=== PATIENT | female | born 1970 | race Caucasian/White ===

== ENCOUNTER → 2017-09-28 19:54 | Outpatient (CLI) | payer MEDICAID, SELFPAY | PROVIDERS: Family Provider Family Medicine; PCP Family Medicine; Visit Provider Family Medicine | DX: G47.10 Hypersomnia, unspecified (principal); R06.83 Snoring | CPT/HCPCS: 95810 ==

== ENCOUNTER → 2018-07-03 | Outpatient (CLI) | payer MEDICAID, SELFPAY ==
[2018-06-18 11:27] VITALS: BMI 32.1
--- NOTE | 2018-07-03 16:15 | BI_ITS ---
MAMMOGRAPHY - BILATERAL SCREENING REASON FOR EXAM: Female, 48 years old. Routine annual screening examination. PERTINENT HISTORY: Non-contributory. TECHNIQUE: Digital bilateral breast kailyn (3D mammographic acquisition) in the CC and MLO projections. 2-D mediolateral oblique (MLO) and craniocaudad (CC) views of both breasts were obtained. CAD: Full Field Digital Mammography with Computer Added Detection was performed. COMPARISON: Comparison is made with prior study dated April 03, 2017. FINDINGS: Breast Composition: The breasts are heterogeneously dense, which may obscure small masses. There are no dominant masses or suspicious calcifications. Stable small benign-appearing bilateral axillary lymph nodes. No other significant abnormalities are identified. There has been no significant change since the prior study. BI/SCREENING MAMM (CAD), BILAT IMPRESSION: Stable bilateral screening mammogram. Yearly follow-up mammogram recommended. (A) ASSESSMENT CATEGORY: BIRADS Category 2: Benign. A letter regarding these results will be sent to the patient by the facility within 30 days. Approximately 10% of breast cancers are not detected by mammography. A normal mammogram should not delay biopsy of a clinically suspicious abnormality. [id number] Electronically Signed: Prashanth Yancey MD at 9:45 EST Tel [phone], Service support ,
--- OUTSIDE RECORDS SUMMARY | 2018-12-30 18:23 | XMS RPT_ITS | CCD ---
:1970 External Reference #:[id number] Author Organization [facility] Care Team Providers Name Role Phone Unavailable Unavailable Unavailable Allergies Reported Allergen Reaction(s) Severity Date of Onset Location Diclofenac Translations: 07-19-2014 - [facility] Main [ DICLOFENAC SODIUM] [place] Repository Medications Medication Name Sig Date Prescriber Location lisinopril LISINOPRIL 5 MG [facility]S [facility] [place] [facility] (09363) daily LISINOPRIL [id number] Rica Dill [employer] LISINOPRIL 5 MG TABS One 03-20-2017 [facility] [place] [facility] tablet by mouth daily (67150) LISINOPRIL [id number] Rica Dill [employer] Problems Active Problems Category Problem Name Status Date Location Diabetes mellitus with Type 2 diabetes Active 09-26-2017 - [facility] complications mellitus with [place] (63382) hyperglycemia Diabetes mellitus Type 2 diabetes Active 04-01-2018 - [facility] without complication mellitus without [place] (30631) complications Essential hypertension Essential (primary) Active 07-15-2012 - [facility] hypertension [place] (54315) Unclassified Screening mammography Active 03-20-2017 - [place] [facility] (92223) Unclassified Gynecologic Active 03-20-2017 - [place] [facility] (15351) Past or Other Problems Category Problem Name Status Date Location Other lower Other abnormalities of Completed 03-01-2018 - [facility] respiratory disease breathing [place] (18239) Results Result Name Value Range Unit Interpretation Flag Date Location comp metabolic panel on 2018-04-01 Albumin mass conc 4.2 3.9-4.9 g/dL Normal 04-01-2018 [facility] (75333) Comment: Performed By: #### CMP, LIPB, HBA1C #### [facility] [address] [address] ALP enzyme act/vol 102 32-117 U/L Normal 04-01-2018 [facility] ([id number]) Comment: Performed By: #### CMP, LIPB, HBA1C #### [address] [place] [address] [place] [address] ALT enzyme act/vol 32 7-38 U/L Normal 04-01-2018 [facility] (08133) Comment: Performed By: #### CMP, LIPB, HBA1C #### [place] [address] [place] [address] Anion gap molar conc 14 9-18 mmol/L Normal 04-01-2018 [facility] (33530) Comment: Performed By: #### CMP, LIPB, HBA1C #### [place] [phone] AST enzyme act/vol 27 13-35 U/L Normal 04-01-2018 [facility] ([id number]) Comment: Performed By: #### CMP, LIPB, HBA1C #### [place] [address] Bilirubin mass conc 0.3 0.2-1.3 mg/dL Normal 04-01-2018 [facility] (72796) Comment: Performed By: #### CMP, LIPB, HBA1C #### [place] [phone] Calcium mass conc 9.5 8.5-10.2 mg/dL Normal 04-01-2018 [facility] (40252) Comment: Performed By: #### CMP, LIPB, HBA1C #### [place] [address] Chloride molar conc 100 97-105 mmol/L Normal 04-01-2018 [facility] ([id number]) Comment: Performed By: #### CMP, LIPB, HBA1C #### [address] [place] [address] [place] [address] CO2 molar conc 24 22-30 mmol/L Normal 04-01-2018 [facility] ([id number]) Comment: Performed By: #### CMP, LIPB, HBA1C #### [facility] [address] [phone] Creatinine mass conc 0.61 0.58-0.96 mg/dL Normal 04-01-2018 [facility] ([id number]) Comment: Performed By: #### CMP, LIPB, HBA1C #### [facility] [address] [address] eGFR- Amer. >60 Normal 04-01-2018 [facility] ([id number]) Comment: Performed By: #### CMP, LIPB, HBA1C #### [facility] [address] [phone] GFR/1.73 sq M predicted >60 mL/min/{1.73_m2} Normal 04-01-2018 [facility] among non-blacks MDRD [place] (16862) vol rate/area (S/P/Bld) Comment: Result Comment: eGFR (Estimated GFR) Units of measure: mL/min/1.73 meters squared eGFR is derived from the reexpressed MDRD Study equation using the following parameters: serum creatinine, age, gender and race. The creatinine assay has been calibrated to be traceable to IDMS. An eGFR <60 mL/min/1.73m2 for >3 months is consistent with chronic kidney disease. Refer to KDOQI guidelines for clinical interpretation. In patients with unstable renal function, e.g. those with acute kidney injury, the eGFR may not accurately reflect actual GFR. Performed By: #### CMP, LIPB, HBA1C #### [facility] [address] [phone] Glucose mass conc 121 74-99 mg/dL High 04-01-2018 [facility] ([id number]) Comment: Result Comment: The [place] Diabetes Association (ADA) provides guidance for cutoff values for fasting glucose and random glucose. The ADA defines fasting as no caloric intake for at least 8 hours. Fas ting plasma glucose results between 100 to 125 mg/dL indicate increased risk for diabetes (prediabetes). Fasting plasma glucose results greater than or equal to 126 mg/dL meet the criteria for diagnosis of diabetes. In the absence of unequivocal hyperglycemia, results should be confirmed by repeat testing. In a patient with classic symptoms of hyperglycemia or hyperglycemic crisis, random plasma glucose results greater than or equal to 200 mg/dL meet the criteria for diagnosis of diabetes. Reference: Standards of Medical Care in Diabetes 2016, [place] [employer] Association. Diabetes Care. 2016.39(Suppl 1). Performed By: #### CMP, LIPB, HBA1C #### [facility] [address] [address] Potassium molar conc 4.4 3.7-5.1 mmol/L Normal 04-01-2018 [facility] ([id number]) Comment: Performed By: #### CMP, LIPB, HBA1C #### [facility] [address] [address] Protein mass conc 8.0 6.3-8.0 g/dL Normal 04-01-2018 [facility] ([id number]) Comment: Performed By: #### CMP, LIPB, HBA1C #### [facility] [address] [address] Sodium molar conc 138 136-144 mmol/L Normal 04-01-2018 [facility] ([id number]) Comment: Performed By: #### CMP, LIPB, HBA1C #### [facility] [address] [address] Urea nitrogen mass conc 11 7-21 mg/dL Normal 04-01-2018 [facility] ([id number]) Comment: Performed By: #### CMP, LIPB, HBA1C #### [facility] [address] [address] office visit: est annual on null Documentation of Done Invalid 03-20-2017 [facility] current medications Interpretation Code 03-20-2017 [facility] ([facility] (38869) Protein mass conc yes 03-20-2017 - [place] 03-20-2017 [facility] (96306) Protein mass conc Done 03-20-2017 - [place] 03-20-2017 [facility] (97673) Smoking cessation yes Invalid 03-20-2017 [facility] education Interpretation Code 03-20-2017 [facility] (procedure) (27940) Tobacco smoking Never Invalid 03-20-2017 [facility] status NJIS Interpretation Code 03-20-2017 [facility] (12157) Tobacco smoking Current 03-20-2017 - [place] status NHIS every day 03-20-2017 [facility] smoker (58907) Tobacco use CPHS Current Invalid 03-20-2017 - [place] every day Interpretation Code 03-20-2017 [facility] smoker (51015) hemoglobin a1c on 2018-04-01 Hemoglobin A1c/Hemoglobin.total 128 mg/dL Normal 04-01-2018 [facility] mass fraction (Bld) [place] (32929) Comment: Result Comment: eAG: (Estimated average glucose) is a calculated value from HgbA1c and is surgical sales representative of the average blood glucose level in the last 2-3 month period. Performed By: #### HBA1C, CMP, LIPB #### [facility] [address] [address] Hemoglobin A1c/Hemoglobin.total 6.1 4.3-5.6 % High 04-01-2018 [facility] mass fraction (Bld) [place] (72739) Comment: Performed By: #### HBA1C, CMP, LIPB #### [facility] [address] [place] [address] progress on 2018-12-11 Protein mass HNO ID: [id number] Normal 12-11-2018 [facility] conc Author: Henrietta Connors) Consuelo Oliver ([id number]) Service: ? Author Type: Physician Packing Inspector Type: Progress Notes Filed: 12/11/2018 4:11 PM Note Text: Subjective HPI She presents with cough and body aches over the past 4 days. No chest pain or shortness of breath. She is a smoker half a pack a day. She denies history of asthma or COPD. She states she was concerned about bronchitis. She did try some Mucinex DM [id number]. No vomiting or diarrhea. No ear pain or sore throat. He does have an inhaler at home. Review of Systems Constitutional: Positive for malaise/fatigue. Negative for fever. HENT: Positive for congestion. Negative for ear pain and sore throat. Respiratory: Positive for cough. Negative for sputum production, shortness of breath and wheezing. Cardiovascular: Negative for chest pain. Skin: Negative for itching and rash. All other systems reviewed and are negative. PAST MEDICAL HISTORY Diagnosis Date - Abnormal finding on Pap smear, HPV DNA positive 2008 - Dysmenorrhea - Essential hypertension, benign - Excessive or frequent menstruation Heavy periods - Irregular menstrual cycle Irregular periods - Leiomyoma of uterus, unspecified - Obesity, unspecified - Tobacco use disorder - Unspecified essential hypertension Essential hypertension Current Outpatient Medications: metFORMIN ER (GLUCOPHAGE XR) 500 mg 24 hr tablet Take 2 tablets by mouth daily with breakfast. Disp: 60 tablet Rfl: 11 lisinopril (ZESTRIL, PRINIVIL) 5 mg tablet Take 1 tablet by mouth once daily. Disp: 30 tablet Rfl: 11 lancets (ONE TOUCH DELICA) 33 gauge [facility] [place] blood sugar(s) twice daily. Dx: Type 1 DM - Uncontrolled E 10.65 Insulin: No Disp: 1 Each Rfl: 1 FRANCIA'S WORT, BULK, [facility] [place] Disp: Rfl: blood sugar diagnostic (BLOOD GLUCOSE TEST) test strip Test blood sugar(s) 2 times daily. Dx: Type 2 DM - Uncontrolled E11.65 Insulin: No Disp: 50 Strip Rfl: 11 benzonatate (TESSALON PERLE) 100 mg capsule Take 2 capsules by mouth three times daily as needed. Disp: 30 capsule Rfl: 0 codeine-guaiFENesin (GUAIFENESIN AC) 10-100 mg/5 mL syrup Take 10 mL by mouth three times daily as needed for up to 7 days. Disp: 100 mL Rfl: 0 albuterol HFA (PROVENTIL HFA, VENTOLIN HFA) 90 mcg/actuation inhaler Inhale 2 Puffs as instructed every 6 hours as needed for Wheezing/Shortness of Breath. (Patient not taking: Reported on 11/19/2018 ) Disp: 1 Inhaler Rfl: 0 No current facility-administered medications for this visit. PAST SURGICAL HISTORY Procedure Laterality Date - LIGATE FALLOPIAN TUBE 10/24/2005 Tubal ligation - REMOVAL GALLBLADDER Cholecystectomy [open][[ - VAGINAL HYSTERECTOMY 2012 FAMILY HISTORY Problem Relation Age of Onset - Diabetes Mother - Hypertension Mother - Diabetes Father - Diabetes Maternal Grandfather Social History Tobacco Use - Smoking status: Current Every Day Smoker Packs/day: 0.50 Years: 21.00 Pack years: 10.50 Types: Cigarettes - Smokeless tobacco: Never Used Substance Use Topics - Alcohol use: Yes Alcohol/week: 3.0 oz Types: 2 Cans of Beer (12oz) per week Comment: Occasionally - Drug use: No BP 118/64 Pulse 86 Temp 36.9 ?C (98.4 ?F) (Tympanic) Resp 18 Wt 92.5 kg (204 lb) LMP 02/25/2012 SpO2 98% BMI 31.71 kg/m? Objective Physical Exam Constitutional: She is oriented to person, place, and time and well-developed, well-nourished, and in no distress. HENT: Head: Normocephalic and atraumatic. Right Ear: Tympanic membrane, external ear and ear canal normal. Left Ear: Tympanic membrane, external ear and ear canal normal. Nose: Rhinorrhea present. Mouth/Throat: Uvula is midline, oropharynx is clear and moist and mucous membranes are normal. Neck: Normal range of motion. Neck supple. Cardiovascular: Normal rate, regular rhythm and normal heart sounds. Pulmonary/Chest: Effort normal and breath sounds normal. No respiratory distress. She has no wheezes. She has no rales. Lungs clear, harsh cough Lymphadenopathy: She has no cervical adenopathy. Neurological: She is alert and oriented to person, place, and time. Skin: Skin is warm and dry. No rash noted. Nursing note and vitals reviewed. ASSESSMENT/PLAN: 1. Bronchitis - ICD9: 490, ICD10: J40 Given tessalon for during the day and robitussin ac for nighttime cough. Lungs are clear, she is oxygenating well. - CODEINE 10 MG-GUAIFENESIN 100 MG/5 ML ORAL LIQUID Henrietta Ellington PA-C lipid panel, basic on 2018-04-01 Cholesterol in HDL mass conc 34 >39 mg/dL Low 04-01-2018 [facility] ([id number]) Comment: Result Comment: 40-59 mg/dL, Acceptable >59 mg/dL, High: Negative risk factor for coronary heart disease <40 mg/dL, Low: Positive risk factor for coronary heart disease Performed By: #### CMP, LIPB, HBA1C #### [facility] [address] [phone] Cholesterol in LDL mass conc 103 <100 mg/dL High 04-01-2018 [facility] ([id number]) Comment: Result Comment: <100 mg/dL, Optimal 100-129 mg/dL, Near optimal/above optimal 130-159 mg/dL, Borderline high 160-189 mg/dL, High >189 mg/dL, Very high Secondary prevention optimal LDL Cholesterol levels are recommended to be < 70 mg/dL Performed By: #### CMP, LIPB, HBA1C #### [facility] [address] [phone] Cholesterol mass conc 161 <200 mg/dL Normal 04-01-2018 [facility] ([id number]) Comment: Result Comment: <200 mg/dL, Desirable 200-239 mg/dL, Borderline high >239 mg/dL, High Performed By: #### CMP, LIPB, HBA1C #### [facility] [address] [address] Fasting Time 3 hrs Normal 04-01-2018 [facility] ([id number]) Comment: Performed By: #### CMP, LIPB, HBA1C #### [facility] [phone] LDL:HDL Ratio 3.03 <2.54 High 04-01-2018 [facility] (68106) Comment: Result Comment: Reference: 1. National Cholesterol Education Program ATP III Guideline At-A-Glance Quick Desk Reference: National Heart, Lung, and Blood [place]. National Institutes of Health. 2001: NIH Publication No. 01-3305. 2. An International Atherosclerosis Society position paper: global recommendations for the management of dyslipidemia: executive summary, Atherosclerosis. 2014: 232(2):410-413. Performed By: #### CMP, LIPB, HBA1C #### [facility] [address] Non HDL Cholesterol 127 <130 mg/dL Normal 04-01-2018 [facility] ([id number]) Comment: Result Comment: <130 mg/dL, Optimal 130-159 mg/dL, Near optimal/above optimal 160-189 mg/dL, Borderline high 190-219 mg/dL, High >219 mg/dL, Very high Secondary prevention optimal non HDL Cholesterol levels are recommended to be < 100 mg/dL Performed By: #### CMP, LIPB, HBA1C #### [facility] [address] [phone] TC:HDL Ratio 4.74 <5.10 Normal 04-01-2018 [facility] ([id number]) Comment: Performed By: #### CMP, LIPB, HBA1C #### [facility] [address] [phone] Triglyceride mass conc 119 <150 mg/dL Normal 04-01-2018 [facility] ([id number]) Comment: Result Comment: <150 mg/dL, Normal 150-199 mg/dL, Borderline high 200-499 mg/dL, High >499 mg/dL, Very high Performed By: #### CMP, LIPB, HBA1C #### [facility] [address] [phone] VLDL Cholesterol 24 <30 mg/dL Normal 04-01-2018 [facility] ([id number]) Comment: Performed By: #### CMP, LIPB, HBA1C #### [place] [phone] urine culture on 2018-11-19 Bacteria Sp. Request/Comment: - Specimen received in preservative Critically 11-19-2018 [place] identified Cx Culture Result - 50,000 - <100,000 CFU/ml Escherichia coli --> ABNORMAL ALERT abnormal [facility] (U) ORGANISM: Escherichia coli [place] METHOD: Minimum inhibitory concentration([employer]) (77307) Antibiotic Interp SMITHA Status Ampicillin RESISTANT >=32 F Gentamicin SUSCEPTIBLE <=1 F Trimeth sulfameth SUSCEPTIBLE <=20 F Cefazolin SUSCEPTIBLE <=4 F CLSI breakpoints for therapy of uncomplicated UTI's due to E.coli, K.pneumoniae, and P.mirabilis were applied and may be used to predict the activity of oral agents(cefaclor, cefdinir, cefpodoxime, cefp rozil, cefuroxime, cephalexin, loracarbef). Ciprofloxacin SUSCEPTIBLE <=0.25 F Nitrofurantoin SUSCEPTIBLE <=16 F Cefepime SUSCEPTIBLE <=1 F Piperacillin/Tazobac SUSCEPTIBLE <=4 F Ampicillin Sulbact RESISTANT >=32 F Ceftriaxone SUSCEPTIBLE <=1 F Meropenem SUSCEPTIBLE <=0.25 F Ertapenem SUSCEPTIBLE <=0.5 F Comment: Performed By: #### CMP, LIPB, HBA1C #### [facility] [address] [address] cnov on 2018-12-11 CNOV Office Visit (UCWSTR) Normal 12-11-2018 [place] [facility] LAURA WHITTAKER ([id number]) 1970 F [place] Date Time Provider Department ([id number]) 12/11/18 12:30 PM HENRIETTA ELLINGTON) [facility] During your visit today, we recorded the following information about you: Temperature Pulse Respiration Blood pressure 98.4 degrees 86/minute 18/minute 118/64 Weight 92.5 kg Henrietta Ellington PA-C 12/11/2018 4:11 PM Signed Subjective HPI She presents with cough and body aches over the past 4 days. No chest pain or shortness of breath. She is a smoker half a pack a day. She denies history of asthma or COPD. She states she was concerned about bronchitis. She did try some Mucinex DM [id number]-[id number]. No vomiting or diarrhea. No ear pain or sore throat. He does have an inhaler at home. Review of Systems Constitutional: Positive for malaise/fatigue. Negative for fever. HENT: Positive for congestion. Negative for ear pain and sore throat. Respiratory: Positive for cough. Negative for sputum production, shortness of breath and wheezing. Cardiovascular: Negative for chest pain. Skin: Negative for itching and rash. All other systems reviewed and are negative. PAST MEDICAL HISTORY Diagnosis Date - Abnormal finding on Pap smear, HPV DNA positive 2008 - Dysmenorrhea - Essential hypertension, benign - Excessive or frequent menstruation Heavy periods - Irregular menstrual cycle Irregular periods - Leiomyoma of uterus, unspecified - Obesity, unspecified - Tobacco use disorder - Unspecified essential hypertension Essential hypertension Current Outpatient Medications: metFORMIN ER (GLUCOPHAGE XR) 500 mg 24 hr tablet Take 2 tablets by mouth daily with breakfast. Disp: 60 tablet Rfl: 11 lisinopril (ZESTRIL, PRINIVIL) 5 mg tablet Take 1 tablet by mouth once daily. Disp: 30 tablet Rfl: 11 lancets (ONE TOUCH DELICA) 33 gauge [facility] [place] Test blood sugar(s) twice daily. Dx: Type 1 DM - Uncontrolled E 10.65 Insulin: No Disp: 1 Each Rfl: 1 FRANCIA'S WORT, BULK, [facility] Disp: Rfl: blood sugar diagnostic (BLOOD GLUCOSE TEST) test strip Test blood sugar(s) 2 times daily. Dx: Type 2 DM - Uncontrolled E11.65 Insulin: No Disp: 50 Strip Rfl: 11 benzonatate (TESSALON PERLE) 100 mg capsule Take 2 capsules by mouth three times daily as needed. Disp: 30 capsule Rfl: 0 codeine-guaiFENesin (GUAIFENESIN AC) 10-100 mg/5 mL syrup Take 10 mL by mouth three times daily as needed for up to 7 days. Disp: 100 mL Rfl: 0 albuterol HFA (PROVENTIL HFA, VENTOLIN HFA) 90 mcg/actuation inhaler Inhale 2 Puffs as instructed every 6 hours as needed for Wheezing/Shortness of Breath. (Patient not taking: Reported on 11/19/2018 ) Disp: 1 Inhaler Rfl: 0 No current facility-administered medications for this visit. PAST SURGICAL HISTORY Procedure Laterality Date - LIGATE FALLOPIAN TUBE 10/24/2005 Tubal ligation - REMOVAL GALLBLADDER Cholecystectomy [open][[ - VAGINAL HYSTERECTOMY 2012 FAMILY HISTORY Problem Relation Age of Onset - Diabetes Mother - Hypertension Mother - Diabetes Father - Diabetes Maternal Grandfather Social History Tobacco Use - Smoking status: Current Every Day Smoker Packs/day: 0.50 Years: 21.00 Pack years: 10.50 Types: Cigarettes - Smokeless tobacco: Never Used Substance Use Topics - Alcohol use: Yes Alcohol/week: 3.0 oz Types: 2 Cans of Beer (12oz) per week Comment: Occasionally - Drug use: No BP 118/64 Pulse 86 Temp 36.9 ?C (98.4 ?F) (Tympanic) Resp 18 Wt 92.5 kg (204 lb) LMP 02/25/2012 SpO2 98% BMI 31.71 kg/m? Objective Physical Exam Constitutional: She is oriented to person, place, and time and well-developed, well-nourished, and in no distress. HENT: Head: Normocephalic and atraumatic. Right Ear: Tympanic membrane, external ear and ear canal normal. Left Ear: Tympanic membrane, external ear and ear canal normal. Nose: Rhinorrhea present. Mouth/Throat: Uvula is midline, oropharynx is clear and moist and mucous membranes are normal. Neck: Normal range of motion. Neck supple. Cardiovascular: Normal rate, regular rhythm and normal heart sounds. Pulmonary/Chest: Effort normal and breath sounds normal. No respiratory distress. She has no wheezes. She has no rales. Lungs clear, harsh cough Lymphadenopathy: She has no cervical adenopathy. Neurological: She is alert and oriented to person, place, and time. Skin: Skin is warm and dry. No rash noted. Nursing note and vitals reviewed. ASSESSMENT/PLAN: 1. Bronchitis - ICD9: 490, ICD10: J40 Given tessalon for during the day and robitussin ac for nighttime cough. Lungs are clear, she is oxygenating well. - CODEINE 10 MG-GUAIFENESIN 100 MG/5 ML ORAL LIQUID Henrietta Ellington PA-C Referring Provider: SELF [200] Allergies As of Date: 12/11/2018 Noted Allergy Reaction VOLTAREN (DICLOFENAC SODIUM) 07/19/2014 2 - Rash Date Reviewed: 12/11/2018 Reviewed by: Haydee Armendariz Ma - Fully Assessed Reason for Visit: Cough [28] Cmt: bodyaches x 4 days Primary Visit Diagnosis:Bronchitis [J40] Order(s):benzonatate (TESSALON PERLE) 100 mg capsuleTake 2 capsules by mouth three times daily as needed.Disp: 30 capsuleRfl: 0 codeine-guaiFENesin (GUAIFENESIN AC) 10-100 mg/5 mL syrupTake 10 mL by mouth three times daily as needed for up to 7 days.Disp: 100 mLRfl: 0 Prescriptions as of 12/11/2018 Sig: METFORMIN ER 500 MG TABLET,EX* Take 2 tablets by mouth daily* LISINOPRIL 5 MG TABLET Take 1 tablet by mouth once d* LANCETS 33 GAUGE Test blood sugar(s) twice opal* FRANCIA'S WORT (BULK) [facility] [place] BLOOD SUGAR DIAGNOSTIC STRIPS Test blood sugar(s) 2 times d* BENZONATATE 100 MG CAPSULE Take 2 capsules by mouth thre* CODEINE 10 MG-GUAIFENESIN 100* Take 10 mL by mouth three flavio* ALBUTEROL SULFATE HFA 90 MCG/* Inhale 2 Puffs as instructed * Patient not taking: Reported on 11/19/2018 Problem List As Of Date 12/11/2018 Noted Resolved Excessive or frequent menstruation [N92.0] INVALID FOR*05/07/2012 Irregular menstrual cycle [N92.6] INVALID FOR*05/07/2012 Dysmenorrhea [N94.6] INVALID FOR*05/07/2012 Leiomyoma of uterus, unspecified [D25.9] INVALID FOR*05/07/2012 Essential hypertension, benign [I10] INVALID FOR* Type 2 diabetes mellitus without complication, *INVALID FOR* Prescriptions ordered this encounter Disp Refills Start End BENZONATATE 100 MG CAPSULE 30 c* 0 12/11/2018 Route: ORAL Sig: Take 2 capsules by mouth three times daily as needed. CODEINE 10 MG-GUAIFENESIN 100 MG/5 M* 100 * 0 12/11/2018 12/18/2018 Class: Print RX Route: ORAL Sig: Take 10 mL by mouth three times daily as needed for up to 7 days. Encounter Status:Closed by HENRIETTA ELLINGTON PA-C on 12/11/18 progress on 2018-03-01 Protein mass conc HNO ID: [id number] Normal 03-01-2018 [facility] Author: Ambar Cardenas [place] ([id number]) Service: (none) Author Type: Nurse Practitioner Type: Progress Notes Filed: 03/01/2018 12:11 PM Note Text: Subjective HPI Pt presents with c/o sore throat, nasal congestion and cough x 6-7 days. States cough is frequent, harsh, moist, nonproductive. +wheezing +chest tightness +coughing fits Current every day smoker. Denies fever, chills, dyspnea. Taking claudia seltzer with no improvement. Review of Systems Constitutional: Negative for chills and fever. HENT: Positive for congestion. Negative for ear pain, nosebleeds, sinus pain and sore throat. Respiratory: Positive for cough and wheezing. Negative for hemoptysis, sputum production and shortness of breath. Cardiovascular: Negative for chest pain. Objective Physical Exam Constitutional: She is oriented to person, place, and time and well-developed, well-nourished, and in no distress. No distress. HENT: Head: Normocephalic. Right Ear: Hearing, tympanic membrane, external ear and ear canal normal. Left Ear: Hearing, tympanic membrane, external ear and ear canal normal. Nose: Nose normal. Right sinus exhibits no maxillary sinus tenderness and no frontal sinus tenderness. Left sinus exhibits no maxillary sinus tenderness and no frontal sinus tenderness. Mouth/Throat: Uvula is midline, oropharynx is clear and moist and mucous membranes are normal. No oropharyngeal exudate. Eyes: Conjunctivae are normal. Pupils are equal, round, and reactive to light. Right eye exhibits no discharge. Left eye exhibits no discharge. Neck: Neck supple. Cardiovascular: Normal rate, regular rhythm and normal heart sounds. Exam reveals no gallop and no friction rub. No murmur heard. Pulmonary/Chest: No accessory muscle usage. No respiratory distress. She has decreased breath sounds (diminished air movement throughout. Pulse ox 93% before albuterol tx. Pulse ox 97% and improved air movement after treatment.). She has wheezes. She has rhonchi. She has no rales. Lymphadenopathy: She has no cervical adenopathy. Neurological: She is alert and oriented to person, place, and time. Skin: Skin is warm and dry. She is not diaphoretic. BP 100/80 Pulse 83 Temp 36.3 ?C (97.3 ?F) (Left Tympanic) Resp 16 Wt 88 kg (194 lb) LMP 02/25/2012 SpO2 93% BMI 30.16 kg/m? .Patient presents with: Cough Head Congestion PAST MEDICAL HISTORY Diagnosis Date - Abnormal finding on Pap smear, HPV DNA positive 2008 - Dysmenorrhea - Essential hypertension, benign - Excessive or frequent menstruation Heavy periods - Irregular menstrual cycle Irregular periods - Leiomyoma of uterus, unspecified - Obesity, unspecified - Tobacco use disorder - Unspecified essential hypertension Essential hypertension PAST SURGICAL HISTORY Procedure Laterality Date - LIGATE FALLOPIAN TUBE 10/24/2005 Tubal ligation - REMOVAL GALLBLADDER Cholecystectomy [open][[ - VAGINAL HYSTERECTOMY 2012 ALLERGIES Voltaren [Diclofenac Sodium] MEDICATIONS metFORMIN ER (GLUCOPHAGE XR) 500 mg 24 hr tablet Take 2 tablets by mouth daily with breakfast. lancets (ONE TOUCH DELICA) 33 gauge misc Test blood sugar(s) twice daily. Dx: Type 1 DM - Uncontrolled E 10.65 Insulin: No [facility] [place] [place] blood sugar diagnostic (BLOOD GLUCOSE TEST) test strip Test blood sugar(s) 2 times daily. Dx: Type 2 DM - Uncontrolled E11.65 Insulin: No lisinopril (ZESTRIL, PRINIVIL) 5 mg tablet Take 1 tablet by mouth once daily. predniSONE (DELTASONE) 20 mg tablet Take 2 tablets by mouth once daily for 5 days. Take daily with food. albuterol HFA (PROVENTIL HFA, VENTOLIN HFA) 90 mcg/actuation inhaler Inhale 2 Puffs as instructed every 6 hours as needed for Wheezing/Shortness of Breath. guaiFENesin (MUCINEX) 600 mg 12 hr tablet Take 2 tablets by mouth twice daily. benzonatate (TESSALON PERLE) 100 mg capsule Take 1 capsule by mouth three times daily as needed. FAMILY HISTORY Problem Relation Age of Onset - Diabetes Mother - Hypertension Mother - Diabetes Father - Diabetes Maternal Grandfather Social History Substance Use Topics - Smoking status: Current Every Day Smoker Packs/day: 0.50 Years: 21.00 Types: Cigarettes - Smokeless tobacco: Never Used - Alcohol use 3.0 oz/week 2 Cans of Beer (12oz) per week Comment: Occasionally ASSESSMENT/PLAN: 1. Abnormal breath sounds - ICD9: 786.7, ICD10: R06.89 (primary diagnosis) - XR CHEST 2V FRONTAL/LAT Pt to [place] for xray. Will notify of results. 2. Wheezing - ICD9: 786.07, ICD10: R06.2 - ALBUTEROL SULFATE 2.5 MG/3 ML (0.083 %) SOLUTION FOR NEBULIZATION - PREDNISONE 20 MG TABLET - ALBUTEROL SULFATE HFA 90 MCG/ACTUATION AEROSOL INHALER 3. Cough - ICD9: 786.2, ICD10: R05 - GUAIFENESIN ER 600 MG TABLET, EXTENDED RELEASE 12 HR - BENZONATATE 100 MG CAPSULE The patient is instructed to return or seek emergency treatment if symptoms become worse or with any acute change in condition. The patient verbalizes understanding and is in agreement with plan of care. Ambar Cardenas CNP Protein mass conc HNO ID: [id number] Normal 03-01-2018 [facility] Author: Leatha MedinaRt) Per Finnegan [place] ([id number]) Service: (none) Author Type: Design Leader Type: Progress Notes Filed: 03/01/2018 12:00 PM Note Text: Radiology Service Progress Note PATIENT NAME: Laura Whittaker DATE OF SERVICE: March 01, 2018 TIME: 11:54 AM PATIENT IDENTITY VERIFICATION COMPLETED USING TWO (2) METHODS: Patient confirmed name verbally and Date of . PATIENT GENDER DATA: Female. status: : No status: NO. PATIENT RELEVANT IMPLANT DATA REVIEWED: Not Applicable RADIOLOGY DEPARTMENT: General X-ray: Exam(s) Completed: Chest X-Ray PERIPHERAL IV DATA: Not applicable SIGNED BY: RT Marino March 01, 2018 11:54 AM progress on 2018-11-19 Protein mass conc HNO ID: [id number] Normal 11-19-2018 [facility] Author: Anais Lindquist) Alonso [place] ([id number]) Service: ? Author Type: Nurse Practitioner Type: Progress Notes Filed: 11/19/2018 1:08 PM Note Text: Subjective The history is provided by the patient. No high school foreign language teacher was used. HPI Laura Whittaker is a 48 year old female who presents today for CC of burning with urination and lower abdominal pressure. This started 2-3 days ago. She had tried AZO without relief. She is a t2D in the past year on medications. Sexually active. She denies fever or back ache BP 128/78 Pulse 72 Temp 36.8 ?C (98.3 ?F) (Tympanic) Resp 16 Wt 93.8 kg (206 lb 12.8 oz) LMP 02/25/2012 BMI 32.15 kg/m? 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: [employer] Tobacco Use Smoking status: Current Every Day Smoker Packs/day: 0.50 Years: 21.00 Pack years: 10.5 Types: Cigarettes Smokeless tobacco: Never Used Substance and Sexual Activity Alcohol use: Yes Alcohol/week: 3.0 oz Types: 2 Cans of Beer (12oz) per week Comment: Occasionally Drug use: No Sexual activity: Yes Partners: Male control/protection: Tubal Ligation Other Topics Concerns: Not on file Social History Narrative Not on file PAST MEDICAL HISTORY Diagnosis Date - Abnormal finding on Pap smear, HPV DNA positive 2008 - Dysmenorrhea - Essential hypertension, benign - Excessive or frequent menstruation Heavy periods - Irregular menstrual cycle Irregular periods - Leiomyoma of uterus, unspecified - Obesity, unspecified - Tobacco use disorder - Unspecified essential hypertension Essential hypertension I have confirmed and edited as necessary, the [facility] Review of Systems Constitutional: Negative for chills and fever. Gastrointestinal: Positive for abdominal pain (suprapubic pressure). Genitourinary: Positive for dysuria. Negative for flank pain, frequency, hematuria and urgency. Objective Physical Exam Constitutional: She is oriented to person, place, and time and well-developed, well-nourished, and in no distress. Abdominal: Normal appearance and bowel sounds are normal. She exhibits no abdominal bruit, no pulsatile midline mass and no mass. There is no hepatosplenomegaly. There is tenderness in the suprapubic area. There is no rigidity, no rebound, no guarding, no CVA tenderness, no tenderness at McBurney's point and negative Senior's sign. Neurological: She is alert and oriented to person, place, and time. Skin: Skin is warm and dry. Psychiatric: Affect normal. Nursing note and vitals reviewed. Component Latest Ref Rng AND Units 11/19/2018 GLUCOSE UA (POCT) Negative mg/dL 250 (A) BILIRUBIN UA (POCT) Negative Negative KETONE UA (POCT) Negative mg/dL Negative SPECIFIC GRAVITY UA (POCT) 1.005 - 1.030 1.025 HEMOGLOBIN/BLOOD UA (POCT) Negative Trace-intact (A) PH UA (POCT) 4.5 - 8.0 5.5 PROTEIN UA (POCT) Negative mg/dL Negative UROBILINOGEN UA (POCT) Normal E.U./dL 0.2 NITRITE UA (POCT) Negative Negative LEUKOCYTES UA (POCT) Negative Trace (A) COLOR UA (POCT) Yellow CLARITY UA (POCT) Cloudy ASSESSMENT/PLAN: 1. Dysuria - ICD9: 788.1, ICD10: R30.0 (primary diagnosis) acute - UA positive for christophe esterase and hematuria - Send urine for culture - Begin treatment with Macrobid 100 mg BID for 5 days - Patient education for prevention given - UA DIP, URINE (POC) - URINE CULTURE 2. Acute UTI - ICD9: 599.0, ICD10: N39.0 -Avoid alcohol and caffeine as these are bladder irritants and may make symptoms worse. -You can take OTC AZO if needed for painful urination but not for longer then 2 days. Urinary tract infection (UTI) We will send the urine for culture, which shows us what organism, if any, we are treating. If we need to change the antibiotic coverage, you will receive a call in 48-72 hours. * Seek medical care immediately, call 911, or go to ER if you have high fevers, severe flank or low back pain, blood in your urine. * Follow up with primary care provider if symptoms persist or worsen. Diagnosis and treatment plan were discussed and questions were answered to the patient's satisfaction. Pt acknowledged understanding of concepts and follow up plan. Specific signs and symptoms that would indicate the need for higher level of care were discussed in detail warranting prompt ER evaluation. Anais Gupta, ALAN.CODE ENFORCEMENT INSPECTOR xr chest 2v frontal/lat on 2018-03-01 XR CHEST 2V * * *Final Report* * * Normal 03-01-2018 [facility] FRONTAL/LAT DATE OF EXAM: Mar 01 2018 12:01PM [place] WRX [id number] - XR CHEST 2V FRONTAL/LAT / ([id number]) PROCEDURE REASON: Other abnormalities of breathing * * * * Physician Interpretation * * * * EXAMINATION: CHEST RADIOGRAPH (2 VIEW FRONTAL and LATERAL) Clinical History: Other abnormalities of breathing MQ: XC2_5 Comparison: None. RESULT: Lines, tubes, and devices: None. Lungs and pleura: No consolidation. Small linear opacities overlying the left lower lung, likely representing focal atelectasis versus scarring. Prominent and coarse pulmonary markings noted in the bilateral lungs. No pleural fusions or pneumothorax. Cardiomediastinal silhouette: Normal cardiomediastinal silhouette. Other: There are degenerative changes in the spine. IMPRESSION: Prominent pulmonary markings. Please clinically correlate. Criminal Defense Attorney: PSCB Transcribe Date/Time: Mar 01 2018 12:09P Dictated by : ALBA FELTON MD This examination was interpreted and the report reviewed and electronically signed by: ALBA FELTON MD on Mar 01 2018 12:10PM EST [id number] hemoglobin a1c on 2018-09-30 Hemoglobin A1c/Hemoglobin.total 169 mg/dL Normal 09-30-2018 [facility] mass fraction (Bld) [place] ([id number]) Comment: Result Comment: eAG: (Estimated average glucose) is a calculated value from HgbA1c and is surgical sales representative of the average blood glucose level in the last 2-3 month period. Performed By: #### CMP, LIPB, HBA1C #### [facility] [address] [place], [place] [address] Hemoglobin A1c/Hemoglobin.total 7.5 4.3-5.6 % High 09-30-2018 [facility] mass fraction (Bld) [place] ([id number]) Comment: Result Comment: [place] [employer] guidelines indicate that patients with HgbA1c in the range 5.7-6.4% are at increased risk for development of diabetes, and intervention by lifestyle modification may be beneficial. HgbA1c greater or equal to 6.5% is considered diagnostic of diabetes. Performed By: #### CMP, LIPB, HBA1C #### [facility] [address] [place], [place] [address] cnov on 2018-10-04 CNOV Office Visit (FAMPWS) Normal 10-04-2018 [place] [facility] LAURA WHITTAKER ([id number]) 1970 [address] [facility] Time Provider Department ([id number]) 10/04/18 4:20 PM SUE BAH During your visit today, we recorded the following information about you: Pulse Respiration Blood pressure Weight 74/minute 16/minute 128/80 93.9 kg Sue Bah MD 10/04/2018 4:12 PM Signed Chief Complaint Patient presents with: F/U 6 months HPI Laura Whittaker is a 48 year old female who presents here today for 6 month follow up. Still smoking, not interested in quitting. 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 DM: no checking sugars much at home, once every few weeks. Last reading a few weeks ago was 183. Denies any hypoglycemic issues. Does have some numbness in the toes. Is taking Metformin ER 500 mg, 2 tablets once daily. Denies any side effects. Stated she has lost some weight in the last year. She stated that she used to check the sugars daily but slacked off. She admits that her sugars are high because she was drinking more Mountain Dew through the day. Stated that over the last week she has cut back to 1-2 a day. HTN: Is taking Lisinopril 5 mg daily. Past medical history, appointments, medications, allergies reviewed. Previous Medical History PAST MEDICAL HISTORY Diagnosis Date - Abnormal finding on Pap smear, HPV DNA positive 2008 - Dysmenorrhea - Essential hypertension, benign - Excessive or frequent menstruation Heavy periods - Irregular menstrual cycle Irregular periods - Leiomyoma of uterus, unspecified - Obesity, unspecified - Tobacco use disorder - Unspecified essential hypertension Essential hypertension Previous Surgical History PAST SURGICAL HISTORY Procedure Laterality Date - LIGATE FALLOPIAN TUBE 10/24/2005 Tubal ligation - REMOVAL GALLBLADDER Cholecystectomy [open][[ - VAGINAL HYSTERECTOMY 2012 Family History FAMILY HISTORY Problem Relation Age of Onset - Diabetes Mother - Hypertension Mother - Diabetes Father - Diabetes Maternal Grandfather Patient Allergies ALLERGIES Allergen Reactions - Voltaren [Diclofena* Rash Current Medications Current Outpatient Prescriptions on File Prior to Visit: metFORMIN ER (GLUCOPHAGE XR) 500 mg 24 hr tablet TAKE 2 TABLETS BY MOUTH DAILY WITH BREAKFAST albuterol HFA (PROVENTIL HFA, VENTOLIN HFA) 90 mcg/actuation inhaler Inhale 2 Puffs as instructed every 6 hours as needed for Wheezing/Shortness of Breath. lancets (ONE TOUCH DELICA) 33 gauge misc Test blood sugar(s) twice daily. Dx: Type 1 DM - Uncontrolled E 10.65 Insulin: No blood sugar diagnostic (BLOOD GLUCOSE TEST) test strip Test blood sugar(s) 2 times daily. Dx: Type 2 DM - Uncontrolled E11.65 Insulin: No lisinopril (ZESTRIL, PRINIVIL) 5 mg tablet Take 1 tablet by mouth once daily. [facility] [place] [place] No current facility-administered medications on file prior to visit. Social History Social History Marital status: Single Spouse name: Years of education: 12 Number of children: 1 Occupational History Occupation Employer Comment [employer] Social History Main Topics Smoking status: Current Every Day Smoker Packs/day: 0.50 Years: 21.00 Types: Cigarettes Smokeless tobacco: Never Used Alcohol use: Yes 3.0 oz/week Cans of Beer (12oz): 2 per week Comment: Occasionally Drug use: No Sexual activity: Yes Partners with: Male control/protection: Tubal Ligation EXAM: BP 128/80 Pulse 74 Resp 16 Wt 93.9 kg (207 lb) LMP 02/25/2012 BMI 32.18 kg/m? General Appearance: Well appearing, alert, in no acute distress, well-hydrated, well nourished. and Overweight. Lungs: lungs clear to auscultation. No wheezing, rhonchi, rales. Heart: RRR without murmur, gallop, or rubs. No ectopy. Feet: Shoes and socks removed, No deformities, ulcers, calluses, normal distal pulses and sensitive to 10 gm monofilament Health Maintenance List DIABETIC FOOT EXAM due on 05/20/1978-checked today DTAP,TDAP,TD(1 - Tdap) due on 1987 COLORECTAL CANCER SCREENING,SEE MODIFIER due on 2018 DIABETES MED ADHERENCE due on 10/25/2018 DILATED RETINAL EXAM due on 12/27/2018 HBA1C due on 03/30/2019 LDL CHOLESTEROL due on 04/01/2019 ANNUAL PCP TEAM CHRONIC DISEASE VISIT due on 04/02/2019 BP CONTROLLED (<130/80) due on 04/02/2019 MAMMOGRAM due on 07/03/2019 URINE ALBUMIN:CREATININE RATIO due on 09/30/2019 ONE PNEUMOVAX PRIOR TO AGE 65 Completed INFLUENZA Completed Data reviewed Appointment on 09/30/2018 Component Date Value - Hemoglobin A1C 09/30/2018 7.5* - Estimated Average Glucose 09/30/2018 169 - Glucose 09/30/2018 172* - BUN 09/30/2018 9 - Creatinine 09/30/2018 0.56* - Sodium 09/30/2018 135* - Potassium 09/30/2018 3.9 - Chloride 09/30/2018 97 - CO2 09/30/2018 26 - Anion Gap 09/30/2018 12 - Calcium 09/30/2018 9.0 - eGFR- 09/30/2018 >60 - eGFR-All Other Races 09/30/2018 >60 - Creatinine, Ur Random (U* 09/30/2018 198.8 - Albumin, Urine Random 09/30/2018 15.1 - Albumin/Creat Ratio 09/30/2018 8 ASSESSMENT/PLAN: 1. Type 2 diabetes mellitus without complication, without long-term current use of insulin (HCC) - ICD9: 250.00, ICD10: E11.9 (primary diagnosis) worsening control - Continue current medications 2. Screening for colon cancer - ICD9: V76.51, ICD10: Z12.11 - FECAL OCCULT BLOOD TEST 3. Essential hypertension, benign - ICD9: 401.1, ICD10: I10 - good control - Continue current medication(s) - Recommended regular aerobic exercise. - Recommend home blood pressure monitoring, to bring results in on next visit - Goal of BP <140/90 Follow up in 6 months with fasting labs prior. I agree with the Chief Complaint, ROS, and Past Histories independently gathered by the clinical desktop support specialist and the remaining scribed note accurately describes my personal service to the patient. Sue Bah MD The documentation for this note was completed by Jenna Cifuentes Ma acting as scribe for Sue Bah MD. October 04, 2018 4:05 PM. Referring Provider: BENJAMIN PHILLIPS ([facility]) [[id number]] Allergies As of Date: 10/04/2018 Noted Allergy Reaction VOLTAREN (DICLOFENAC SODIUM) 07/19/2014 2 - Rash Date Reviewed: 10/04/2018 Reviewed by: Jenna Cifuentes Ma - Fully Assessed Reason for Visit: F/U 6 months [1177] Primary Visit Diagnosis:Type 2 diabetes mellitus without complication, without long-term current use of insulin (HCC) [E11.9] Other Visit Diagnoses:Screening for colon cancer [Z12.11] Essential hypertension, benign [I10] Order(s):FECAL OCCULT BLOOD TEST [SQIFOBT] Order #: [id number] FUTURE HGB A1C [KZIMN5H] Order #: [id number] FUTURE LIPID PANEL BASIC [SQLIPB] Order #: [id number] FUTURE COMP METABOLIC PANEL [SQCMP] Order #: [id number] FUTURE metFORMIN ER (GLUCOPHAGE XR) 500 mg 24 hr tabletTake 2 tablets by mouth daily with breakfast.Disp: 60 tabletRfl: 11 lisinopril (ZESTRIL, PRINIVIL) 5 mg tabletTake 1 tablet by mouth once daily.Disp: 30 tabletRfl: 11 Prescriptions as of 10/04/2018 Sig: METFORMIN ER 500 MG TABLET,EX* Take 2 tablets by mouth daily* LISINOPRIL 5 MG TABLET Take 1 tablet by mouth once d* ALBUTEROL SULFATE HFA 90 MCG/* Inhale 2 Puffs as instructed * LANCETS 33 GAUGE Test blood sugar(s) twice opal* BLOOD SUGAR DIAGNOSTIC STRIPS Test blood sugar(s) 2 times d* [facility] [place] Problem List As Of Date 10/04/2018 Noted Resolved Excessive or frequent menstruation [N92.0] INVALID FOR*05/07/2012 Irregular menstrual cycle [N92.6] INVALID FOR*05/07/2012 Dysmenorrhea [N94.6] INVALID FOR*05/07/2012 Leiomyoma of uterus, unspecified [D25.9] INVALID FOR*05/07/2012 Essential hypertension, benign [I10] INVALID FOR* Type 2 diabetes mellitus without complication, *INVALID FOR* Prescriptions ordered this encounter Disp Refills Start End METFORMIN ER 500 MG TABLET,EXTENDED * 60 t* 11 10/04/2018 Route: ORAL Sig: Take 2 tablets by mouth daily with breakfast. LISINOPRIL 5 MG TABLET 30 t* 11 10/04/2018 Route: ORAL Sig: Take 1 tablet by mouth once daily. Medications Discontinued During This Encounter metFORMIN ER (GLUCOPHAGE XR) 500 mg * 60 t* 5 03/25/2018 10/04/2018 Cmt: Maximum Refills Reached Route: ORAL Sig: TAKE 2 TABLETS BY MOUTH DAILY WITH BREAKFAST Disc: Reason for discontinue is not on file. lisinopril (ZESTRIL, PRINIVIL) 5 mg * 30 t* 11 09/14/2017 10/04/2018 Route: ORAL Sig: Take 1 tablet by mouth once daily. Disc: Reason for discontinue is not on file. Disposition: Return in about 6 months (around 04/03/2019). Follow-up and Disposition History Recorded Encounter Status:Closed by SUE BAH MD on 10/04/18 progress on 2018-10-04 Protein mass HNO ID: [id number] Normal 10-04-2018 [facility] Author: Sue Bah [place] ([id number]) Service: (none) Author Type: Physician Type: Progress Notes Filed: 10/04/2018 4:12 PM Note Text: Chief Complaint Patient presents with: F/U 6 months HPI Laura Whittaker is a 48 year old female who presents here today for 6 month follow up. Still smoking, not interested in quitting. 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 DM: no checking sugars much at home, once every few weeks. Last reading a few weeks ago was 183. Denies any hypoglycemic issues. Does have some numbness in the toes. Is taking Metformin ER 500 mg, 2 tablets once daily. Denies any side effects. Stated she has lost some weight in the last year. She stated that she used to check the sugars daily but slacked off. She admits that her sugars are high because she was drinking more Mountain Dew through the day. Stated that over the last week she has cut back to 1-2 a day. HTN: Is taking Lisinopril 5 mg daily. Past medical history, appointments, medications, allergies reviewed. Previous Medical History PAST MEDICAL HISTORY Diagnosis Date - Abnormal finding on Pap smear, HPV DNA positive 2008 - Dysmenorrhea - Essential hypertension, benign - Excessive or frequent menstruation Heavy periods - Irregular menstrual cycle Irregular periods - Leiomyoma of uterus, unspecified - Obesity, unspecified - Tobacco use disorder - Unspecified essential hypertension Essential hypertension Previous Surgical History PAST SURGICAL HISTORY Procedure Laterality Date - LIGATE FALLOPIAN TUBE 10/24/2005 Tubal ligation - REMOVAL GALLBLADDER Cholecystectomy [open][[ - VAGINAL HYSTERECTOMY 2012 Family History FAMILY HISTORY Problem Relation Age of Onset - Diabetes Mother - Hypertension Mother - Diabetes Father - Diabetes Maternal Grandfather Patient Allergies ALLERGIES Allergen Reactions - Voltaren [Diclofena* Rash Current Medications Current Outpatient Prescriptions on File Prior to Visit: metFORMIN ER (GLUCOPHAGE XR) 500 mg 24 hr tablet TAKE 2 TABLETS BY MOUTH DAILY WITH BREAKFAST albuterol HFA (PROVENTIL HFA, VENTOLIN HFA) 90 mcg/actuation inhaler Inhale 2 Puffs as instructed every 6 hours as needed for Wheezing/Shortness of Breath. lancets (ONE TOUCH DELICA) 33 gauge misc Test blood sugar(s) twice daily. Dx: Type 1 DM - Uncontrolled E 10.65 Insulin: No blood sugar diagnostic (BLOOD GLUCOSE TEST) test strip Test blood sugar(s) 2 times daily. Dx: Type 2 DM - Uncontrolled E11.65 Insulin: No lisinopril (ZESTRIL, PRINIVIL) 5 mg tablet Take 1 tablet by mouth once daily. [facility] [place] [place] No current facility-administered medications on file prior to visit. Social History Social History Marital status: Single Spouse name: Years of education: 12 Number of children: 1 Occupational History Occupation Employer Comment [employer] Social History Main Topics Smoking status: Current Every Day Smoker Packs/day: 0.50 Years: 21.00 Types: Cigarettes Smokeless tobacco: Never Used Alcohol use: Yes 3.0 oz/week Cans of Beer (12oz): 2 per week Comment: Occasionally Drug use: No Sexual activity: Yes Partners with: Male control/protection: Tubal Ligation EXAM: BP 128/80 Pulse 74 Resp 16 Wt 93.9 kg (207 lb) LMP 02/25/2012 BMI 32.18 kg/m? General Appearance: Well appearing, alert, in no acute distress, well-hydrated, well nourished. and Overweight. Lungs: lungs clear to auscultation. No wheezing, rhonchi, rales. Heart: RRR without murmur, gallop, or rubs. No ectopy. Feet: Shoes and socks removed, No deformities, ulcers, calluses, normal distal pulses and sensitive to 10 gm monofilament Health Maintenance List DIABETIC FOOT EXAM due on 05/20/1978-checked today DTAP,TDAP,TD(1 - Tdap) due on 1987 COLORECTAL CANCER SCREENING,SEE MODIFIER due on 2018 DIABETES MED ADHERENCE due on 10/25/2018 DILATED RETINAL EXAM due on 12/27/2018 HBA1C due on 03/30/2019 LDL CHOLESTEROL due on 04/01/2019 ANNUAL PCP TEAM CHRONIC DISEASE VISIT due on 04/02/2019 BP CONTROLLED (<130/80) due on 04/02/2019 MAMMOGRAM due on 07/03/2019 URINE ALBUMIN:CREATININE RATIO due on 09/30/2019 ONE PNEUMOVAX PRIOR TO AGE 65 Completed INFLUENZA Completed Data reviewed Appointment on 09/30/2018 Component Date Value - Hemoglobin A1C 09/30/2018 7.5* - Estimated Average Glucose 09/30/2018 169 - Glucose 09/30/2018 172* - BUN 09/30/2018 9 - Creatinine 09/30/2018 0.56* - Sodium 09/30/2018 135* - Potassium 09/30/2018 3.9 - Chloride 09/30/2018 97 - CO2 09/30/2018 26 - Anion Gap 09/30/2018 12 - Calcium 09/30/2018 9.0 - eGFR- 09/30/2018 >60 - eGFR-All Other Races 09/30/2018 >60 - Creatinine, Ur Random (U* 09/30/2018 198.8 - Albumin, Urine Random 09/30/2018 15.1 - Albumin/Creat Ratio 09/30/2018 8 ASSESSMENT/PLAN: 1. Type 2 diabetes mellitus without complication, without long-term current use of insulin (HCC) - ICD9: 250.00, ICD10: E11.9 (primary diagnosis) worsening control - Continue current medications 2. Screening for colon cancer - ICD9: V76.51, ICD10: Z12.11 - FECAL OCCULT BLOOD TEST 3. Essential hypertension, benign - ICD9: 401.1, ICD10: I10 - good control - Continue current medication(s) - Recommended regular aerobic exercise. - Recommend home blood pressure monitoring, to bring results in on next visit - Goal of BP <140/90 Follow up in 6 months with fasting labs prior. I agree with the Chief Complaint, ROS, and Past Histories independently gathered by the clinical desktop support specialist and the remaining scribed note accurately describes my personal service to the patient. Sue Bah MD The documentation for this note was completed by Jenna Cifuentes Ma acting as scribe for Sue Bah MD. October 04, 2018 4:05 PM. cnov on 2018-11-19 CNOV Office Visit ([facility]WSTR) Normal 11-19-2018 [facility] LAURA WHITTAKER ([id number]) 1970 [facility] Date Time Provider Department ([id number]) 11/19/18 11:30 AM ANAIS GUPTA (DOMINIQUE) WSTR During your visit today, we recorded the following information about you: Temperature Pulse Respiration Blood pressure 98.3 degrees 72/minute 16/minute 128/78 Weight 93.8 kg Anais Gupta APRN.CNP 11/19/2018 12:07 PM Addendum ASSESSMENT/PLAN: 1. Dysuria - ICD9: 788.1, ICD10: R30.0 (primary diagnosis) acute - UA positive for christophe esterase and hematuria - Send urine for culture - Begin treatment with Macrobid 100 mg BID for 5 days - Patient education for prevention given - UA DIP, URINE (POC) - URINE CULTURE 2. Acute UTI - ICD9: 599.0, ICD10: N39.0 -Avoid alcohol and caffeine as these are bladder irritants and may make symptoms worse. -You can take OTC AZO if needed for painful urination but not for longer then 2 days. Urinary tract infection (UTI) We will send the urine for culture, which shows us what organism, if any, we are treating. If we need to change the antibiotic coverage, you will receive a call in 48-72 hours. * Seek medical care immediately, call 911, or go to ER if you have high fevers, severe flank or low back pain, blood in your urine. * Follow up with primary care provider if symptoms persist or worsen. Patient Education for Adult Female Urinary Tract Infections Possible complications: Pyelonephritis Renal abscess Expected course/prognosis: * Symptoms resolve within 2-3 days after starting treatment in almost all patients * One-fourth of women with simple UTI experience a second UTI within 6 months, and half at some time during lifetime. * Women with frequent or intercourse-related UTI should empty bladder immediately before and following intercourse. Instructions: * Maintain good hydration * Avoid sexual intercourse when symptoms present *Take antibiotic as directed * Return if symptoms not resolved or markedly improved within 48 hours * If taking prophylactic antibiotics, take at bedtime * Take showers instead of tub baths * Avoid feminine hygiene sprays and scented douches * Wipe urethra from front to back *Go to the Emergency room if fever, chills, or flank pain develop Please call your PCP if you are not feeling better in 3-5 days. You can try taking OTC Uristat (pyridium) if needed for burning. *Beware that it will turn your urine orange/red. *Avoid wearing contacts if taking pyridium it could discolor the lenses. Anais Gupta, ALAN.CODE ENFORCEMENT INSPECTOR 11/19/2018 1:08 PM Addendum Subjective The history is provided by the patient. No high school foreign language teacher was used. LEIA Whittaker is a 48 year old female who presents today for CC of burning with urination and lower abdominal pressure. This started 2-3 days ago. She had tried AZO without relief. She is a t2D in the past year on medications. Sexually active. She denies fever or back ache BP 128/78 Pulse 72 Temp 36.8 ?C (98.3 ?F) (Tympanic) Resp 16 Wt 93.8 kg (206 lb 12.8 oz) LMP 02/25/2012 BMI 32.15 kg/m? 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: [employer] Tobacco Use Smoking status: Current Every Day Smoker Packs/day: 0.50 Years: 21.00 Pack years: 10.5 Types: Cigarettes Smokeless tobacco: Never Used Substance and Sexual Activity Alcohol use: Yes Alcohol/week: 3.0 oz Types: 2 Cans of Beer (12oz) per week Comment: Occasionally Drug use: No Sexual activity: Yes Partners: Male control/protection: Tubal Ligation Other Topics Concerns: Not on file Social History Narrative Not on file PAST MEDICAL HISTORY Diagnosis Date - Abnormal finding on Pap smear, HPV DNA positive 2008 - Dysmenorrhea - Essential hypertension, benign - Excessive or frequent menstruation Heavy periods - Irregular menstrual cycle Irregular periods - Leiomyoma of uterus, unspecified - Obesity, unspecified - Tobacco use disorder - Unspecified essential hypertension Essential hypertension I have confirmed and edited as necessary, the [facility] Review of Systems Constitutional: Negative for chills and fever. Gastrointestinal: Positive for abdominal pain (suprapubic pressure). Genitourinary: Positive for dysuria. Negative for flank pain, frequency, hematuria and urgency. Objective Physical Exam Constitutional: She is oriented to person, place, and time and well-developed, well-nourished, and in no distress. Abdominal: Normal appearance and bowel sounds are normal. She exhibits no abdominal bruit, no pulsatile midline mass and no mass. There is no hepatosplenomegaly. There is tenderness in the suprapubic area. There is no rigidity, no rebound, no guarding, no CVA tenderness, no tenderness at McBurney's point and negative Senior's sign. Neurological: She is alert and oriented to person, place, and time. Skin: Skin is warm and dry. Psychiatric: Affect normal. Nursing note and vitals reviewed. Component Latest Ref Rng AND Units 11/19/2018 GLUCOSE UA (POCT) Negative mg/dL 250 (A) BILIRUBIN UA (POCT) Negative Negative KETONE UA (POCT) Negative mg/dL Negative SPECIFIC GRAVITY UA (POCT) 1.005 - 1.030 1.025 HEMOGLOBIN/BLOOD UA (POCT) Negative Trace-intact (A) PH UA (POCT) 4.5 - 8.0 5.5 PROTEIN UA (POCT) Negative mg/dL Negative UROBILINOGEN UA (POCT) Normal E.U./dL 0.2 NITRITE UA (POCT) Negative Negative LEUKOCYTES UA (POCT) Negative Trace (A) COLOR UA (POCT) Yellow CLARITY UA (POCT) Cloudy ASSESSMENT/PLAN: 1. Dysuria - ICD9: 788.1, ICD10: R30.0 (primary diagnosis) acute - UA positive for christophe esterase and hematuria - Send urine for culture - Begin treatment with Macrobid 100 mg BID for 5 days - Patient education for prevention given - UA DIP, URINE (POC) - URINE CULTURE 2. Acute UTI - ICD9: 599.0, ICD10: N39.0 -Avoid alcohol and caffeine as these are bladder irritants and may make symptoms worse. -You can take OTC AZO if needed for painful urination but not for longer then 2 days. Urinary tract infection (UTI) We will send the urine for culture, which shows us what organism, if any, we are treating. If we need to change the antibiotic coverage, you will receive a call in 48-72 hours. * Seek medical care immediately, call 911, or go to ER if you have high fevers, severe flank or low back pain, blood in your urine. * Follow up with primary care provider if symptoms persist or worsen. Diagnosis and treatment plan were discussed and questions were answered to the patient's satisfaction. Pt acknowledged understanding of concepts and follow up plan. Specific signs and symptoms that would indicate the need for higher level of care were discussed in detail warranting prompt ER evaluation. Anais Gupta APRN.CODE ENFORCEMENT INSPECTOR Referring Provider: SELF [[id number]] Allergies As of Date: 11/19/2018 Noted Allergy Reaction VOLTAREN (DICLOFENAC SODIUM) 07/19/2014 2 - Rash Date Reviewed: 11/19/2018 Reviewed by: Anais ([facility]) Alonso - Fully Assessed Reason for Visit: UTI [116] Cmt: x 7 days Primary Visit Diagnosis:Dysuria [R30.0] Other Visit Diagnosis:Acute UTI [N39.0] Order(s):UA DIP, URINE (POC) [[id number]] Order #: [id number]. #:[id number] URINE CULTURE [SQURCUL] Order #: [id number] nitrofurantoin monohydrate and macrocrystal (MACROBID) 100 mg capsuleTake 1 capsule by mouth twice daily with meals for 5 days.Disp: 10 capsuleRfl: 0 Prescriptions as of 11/19/2018 Sig: METFORMIN ER 500 MG TABLET,EX* Take 2 tablets by mouth daily* LISINOPRIL 5 MG TABLET Take 1 tablet by mouth once d* LANCETS 33 GAUGE Test blood sugar(s) twice opal* [facility] (BULK) [facility] [place] BLOOD SUGAR DIAGNOSTIC STRIPS Test blood sugar(s) 2 times d* NITROFURANTOIN MONOHYDRATE AND * Take 1 capsule by mouth twice* ALBUTEROL SULFATE HFA 90 MCG/* Inhale 2 Puffs as instructed * Patient not taking: Reported on 11/19/2018 Problem List As Of Date 11/19/2018 Noted Resolved Excessive or frequent menstruation [N92.0] INVALID FOR*05/07/2012 Irregular menstrual cycle [N92.6] INVALID FOR*05/07/2012 Dysmenorrhea [N94.6] INVALID FOR*05/07/2012 Leiomyoma of uterus, unspecified [D25.9] INVALID FOR*05/07/2012 Essential hypertension, benign [I10] INVALID FOR* Type 2 diabetes mellitus without complication, *INVALID FOR* Other instructions from your clinician: ASSESSMENT/PLAN: 1. Dysuria - ICD9: 788.1, ICD10: R30.0 (primary diagnosis) acute - UA positive for christophe esterase and hematuria - Send urine for culture - Begin treatment with Macrobid 100 mg BID for 5 days - Patient education for prevention given - UA DIP, URINE (POC) - URINE CULTURE 2. Acute UTI - ICD9: 599.0, ICD10: N39.0 -Avoid alcohol and caffeine as these are bladder irritants and may make symptoms worse. -You can take OTC AZO if needed for painful urination but not for longer then 2 days. Urinary tract infection (UTI) We will send the urine for culture, which shows us what organism, if any, we are treating. If we need to change the antibiotic coverage, you will receive a call in 48-72 hours. * Seek medical care immediately, call 911, or go to ER if you have high fevers, severe flank or low back pain, blood in your urine. * Follow up with primary care provider if symptoms persist or worsen. Patient Education for Adult Female Urinary Tract Infections Possible complications: Pyelonephritis Renal abscess Expected course/prognosis: * Symptoms resolve within 2-3 days after starting treatment in almost all patients * One-fourth of women with simple UTI experience a second UTI within 6 months, and half at some time during lifetime. * Women with frequent or intercourse-related UTI should empty bladder immediately before and following intercourse. Instructions: * Maintain good hydration * Avoid sexual intercourse when symptoms present *Take antibiotic as directed * Return if symptoms not resolved or markedly improved within 48 hours * If taking prophylactic antibiotics, take at bedtime * Take showers instead of tub baths * Avoid feminine hygiene sprays and scented douches * Wipe urethra from front to back *Go to the Emergency room if fever, chills, or flank pain develop Please call your PCP if you are not feeling better in 3-5 days. You can try taking OTC Uristat (pyridium) if needed for burning. *Beware that it will turn your urine orange/red. *Avoid wearing contacts if taking pyridium it could discolor the lenses. Prescriptions ordered this encounter Disp Refills Start End NITROFURANTOIN MONOHYDRATE AND MACROCR* 10 c* 0 11/19/2018 11/24/2018 Route: ORAL Sig: Take 1 capsule by mouth twice daily with meals for 5 days. Encounter Status:Closed by ANAIS GUPTA CNP on 11/19/18 basic metabolic panl on 2018-09-30 Anion gap molar conc 12 9-18 mmol/L Normal 09-30-2018 [facility] ([id number]) Comment: Performed By: #### CMP, LIPB, HBA1C #### [facility] [address] [address] Calcium mass conc 9.0 8.5-10.2 mg/dL Normal 09-30-2018 [facility] ([id number]) Comment: Performed By: #### CMP, LIPB, HBA1C #### [facility] [address] [place] [address] Chloride molar conc 97 97-105 mmol/L Normal 09-30-2018 [facility] ([id number]) Comment: Performed By: #### CMP, LIPB, HBA1C #### [facility] [address] [place] [address] CO2 molar conc 26 22-30 mmol/L Normal 09-30-2018 [facility] ([id number]) Comment: Performed By: #### CMP, LIPB, HBA1C #### [facility] [address] [phone] Creatinine mass conc 0.56 0.58-0.96 mg/dL Low 09-30-2018 [facility] ([id number]) Comment: Performed By: #### CMP, LIPB, HBA1C #### [facility] [address] [id number] eGFR- Amer. >60 Normal 09-30-2018 [facility] ([id number]) Comment: Performed By: #### CMP, LIPB, HBA1C #### [facility] [address] [address] GFR/1.73 sq M predicted >60 mL/min/{1.73_m2} Normal 09-30-2018 [facility] among non-blacks [facility] [place] ([id number]) vol rate/area (S/P/Bld) Comment: Result Comment: eGFR (Estimated GFR) Units of measure: mL/min/1.73 meters squared eGFR is derived from the reexpressed MDRD Study equation using the following parameters: serum creatinine, age, gender and race. The creatinine assay has been calibrated to be traceable to IDMS. An eGFR <60 mL/min/1.73m2 for >3 months is consistent with chronic kidney disease. Refer to KDOQI guidelines for clinical interpretation. In patients with unstable renal function, e.g. those with acute kidney injury, the eGFR may not accurately reflect actual GFR. Performed By: #### CMP, LIPB, HBA1C #### [facility] [address] [address] Glucose mass conc 172 74-99 mg/dL High 09-30-2018 [facility] ([id number]) Comment: Result Comment: The [place] Diabetes Association (ADA) provides guidance for cutoff values for fasting glucose and random glucose. The ADA defines fasting as no caloric intake for at least 8 hours. Fas ting plasma glucose results between 100 to 125 mg/dL indicate increased risk for diabetes (prediabetes). Fasting plasma glucose results greater than or equal to 126 mg/dL meet the criteria for diagnosis of diabetes. In the absence of unequivocal hyperglycemia, results should be confirmed by repeat testing. In a patient with classic symptoms of hyperglycemia or hyperglycemic crisis, random plasma glucose results greater than or equal to 200 mg/dL meet the criteria for diagnosis of diabetes. Reference: Standards of Medical Care in Diabetes 2016, [place] Diabetes Association. Diabetes Care. 2016.39(Suppl 1). Performed By: #### CMP, LIPB, HBA1C #### [facility] [address] [address] Potassium molar conc 3.9 3.7-5.1 mmol/L Normal 09-30-2018 [facility] ([id number]) Comment: Performed By: #### CMP, LIPB, HBA1C #### [facility] [place] [phone] Sodium molar conc 135 136-144 mmol/L Low 09-30-2018 [facility] ([id number]) Comment: Performed By: #### CMP, LIPB, HBA1C #### [facility] [address] [place] [phone] Urea nitrogen mass conc 9 7-21 mg/dL Normal 09-30-2018 [facility] ([id number]) Comment: Performed By: #### CMP, LIPB, HBA1C #### [facility] [address] [place] [phone] albumin/creat ratio on 2018-09-30 Albumin Urine Random 15.1 0.0-23.0 mg/L Normal 09-30-2018 [facility] ([id number]) Comment: Performed By: #### CMP, LIPB, HBA1C #### [place] [address] [place] [phone] Albumin/Creat Ratio 8 0-30 mg/g Normal 09-30-2018 [facility] ([id number]) Comment: Result Comment: 30 to 300 mg/g indicates an increased risk for diabetic nephropathy. Greater than 300 mg/g is consistent with clinical nephropathy. (Am J Kidney Disease 1995, 25:107) Performed By: #### CMP, LIPB, HBA1C #### [facility] [address] [place] [phone] Creatinine,Urine,Ran 198.8 20-300 mg/dL Normal 09-30-2018 [facility] ([id number]) Comment: Performed By: #### CMP, LIPB, HBA1C #### [facility] [address] [place], [place] [address] progress on 2018-04-02 Protein mass HNO ID: [id number] Normal 04-02-2018 [facility] conc Author: Benjamin (Ground Equipment Mechanic) Alan Oliver ([id number]) Service: (none) Author Type: Nurse Practitioner Type: Progress Notes Filed: 04/02/2018 11:15 AM Note Text: Chief Complaint Patient presents with: F/U 3 Month: cough x 1.5 months HPI Laura Whittaker is a 47 year old female who presents here today for Above Complaints.. Patient presents to the office for 3 month follow up for diabetes, cholesterol, and hypertension. Does have a cough that has been present for 1.5 months. Did have treatment for bronchitis. Cough is occasional. Has to clear to her throat. Cough overall is getting better. DM: Does not regularly check her BG. Was checking every day or every other day. BG has been 130-140 fasting. No neuropathy, no hypoglycemia. Foot exam and eye exam are up to date. Occasional episode after metformin use, but infrequently. HTN: Does not check her blood pressure at home. No chest pain, shortness of breath. No leg swelling. Current smoker, is not motivated to quit but would like to quit. Past medical history, appointments, medications, allergies reviewed. Previous Medical History PAST MEDICAL HISTORY Diagnosis Date - Abnormal finding on Pap smear, HPV DNA positive 2008 - Dysmenorrhea - Essential hypertension, benign - Excessive or frequent menstruation Heavy periods - Irregular menstrual cycle Irregular periods - Leiomyoma of uterus, unspecified - Obesity, unspecified - Tobacco use disorder - Unspecified essential hypertension Essential hypertension Previous Surgical History PAST SURGICAL HISTORY Procedure Laterality Date - LIGATE FALLOPIAN TUBE 10/24/2005 Tubal ligation - REMOVAL GALLBLADDER Cholecystectomy [open][[ - VAGINAL HYSTERECTOMY 2012 Family History FAMILY HISTORY Problem Relation Age of Onset - Diabetes Mother - Hypertension Mother - Diabetes Father - Diabetes Maternal Grandfather Patient Allergies ALLERGIES Allergen Reactions - Voltaren [Diclofena* Rash Current Medications Current Outpatient Prescriptions on File Prior to Visit: metFORMIN ER (GLUCOPHAGE XR) 500 mg 24 hr tablet TAKE 2 TABLETS BY MOUTH DAILY WITH BREAKFAST albuterol HFA (PROVENTIL HFA, VENTOLIN HFA) 90 mcg/actuation inhaler Inhale 2 Puffs as instructed every 6 hours as needed for Wheezing/Shortness of Breath. [facility], BULK, [facility] blood sugar diagnostic (BLOOD GLUCOSE TEST) test strip Test blood sugar(s) 2 times daily. Dx: Type 2 DM - Uncontrolled E11.65 Insulin: No lisinopril (ZESTRIL, PRINIVIL) 5 mg tablet Take 1 tablet by mouth once daily. lancets (ONE TOUCH DELICA) 33 gauge [facility] Test blood sugar(s) twice daily. Dx: Type 1 DM - Uncontrolled E 10.65 Insulin: No No current facility-administered medications on file prior to visit. Social History Social History Marital status: Single Spouse name: Years of education: 12 Number of children: 1 Occupational History Occupation Employer Comment [employer] Social History Main Topics Smoking status: Current Every Day Smoker Packs/day: 0.50 Years: 21.00 Types: Cigarettes Smokeless tobacco: Never Used Alcohol use: Yes 3.0 oz/week Cans of Beer (12oz): 2 per week Comment: Occasionally Drug use: No Sexual activity: Yes Partners with: Male control/protection: Tubal Ligation REVIEW OF SYSTEMS: as above ? Reviewed relevant PMHx, PSHx, Social Hx, current medications and allergies. EXAM: BP 108/72 Pulse 80 Temp 36.7 ?C (98.1 ?F) (Tympanic) Resp 20 Wt 88.5 kg (195 lb) LMP 02/25/2012 BMI 30.31 kg/m? General Appearance: Well appearing, alert, in no acute distress, well-hydrated, well nourished.. Head: Normocephalic, no masses, lesions, tenderness or abnormalities. Eyes: Anicteric sclera. Pupils are equally round and reactive to light. Extraocular movements are intact. . Ears: External ears normal, canals clear. Nose/Sinuses: Nares normal, septum midline, mucosa normal, no drainage or sinus tenderness. Lungs: Lungs clear to auscultation. No wheezing, rhonchi, rales. Heart: RRR without murmur, gallop, or rubs. No ectopy. Extremities: No deformities, edema. Health Maintenance List BLOOD PRESSURE CONTROLLED due on 1986 DTAP,TDAP,TD(1 - Tdap) due on 1987 MAMMOGRAM due on 04/03/2018 INFLUENZA(1) due on 04/27/2018 DIABETES MED ADHERENCE due on 04/27/2018 URINE ALBUMIN:CREATININE RATIO due on 09/25/2018 HBA1C due on 10/02/2018 DIABETIC FOOT EXAM due on 10/30/2018 DILATED RETINAL EXAM due on 12/27/2018 ANNUAL PCP TEAM CHRONIC DISEASE VISIT due on 12/31/2018 LDL CHOLESTEROL due on 04/01/2019 ONE PNEUMOVAX PRIOR TO AGE 65 Completed Data reviewed Component Latest Ref Rng AND Units 04/01/2018 Protein, Total 6.3 - 8.0 g/dL 8.0 Albumin 3.9 - 4.9 g/dL 4.2 Calcium 8.5 - 10.2 mg/dL 9.5 Bilirubin, Total 0.2 - 1.3 mg/dL 0.3 Alkaline Phosphatase 32 - 117 U/L 102 AST 13 - 35 U/L 27 Glucose 74 - 99 mg/dL 121 (H) BUN 7 - 21 mg/dL 11 Creatinine 0.58 - 0.96 mg/dL 0.61 Sodium 136 - 144 mmol/L 138 Potassium 3.7 - 5.1 mmol/L 4.4 Chloride 97 - 105 mmol/L 100 CO2 22 - 30 mmol/L 24 Anion Gap 9 - 18 mmol/L 14 ALT 7 - 38 U/L 32 eGFR- >60 eGFR-All Other Races . >60 Cholesterol, Total <200 mg/dL 161 Triglyceride <150 mg/dL 119 HDL Cholesterol >39 mg/dL 34 (L) LDL Cholesterol <100 mg/dL 103 (H) Non HDL Cholesterol <130 mg/dL 127 Fasting Time hrs 3 VLDL Cholesterol <30 mg/dL 24 TC:HDL Ratio <5.10 4.74 LDL:HDL Ratio <2.54 3.03 (H) Hemoglobin A1C 4.3 - 5.6 % 6.1 (H) Estimated Average Glucose mg/dL 128 ASSESSMENT/PLAN: 1. Controlled type 2 diabetes mellitus without complication, without long-term current use of insulin (HCC) - ICD9: 250.00, ICD10: E11.9 (primary diagnosis) Controlled. - Continue current medications - Blood glucose monitoring on a once a day schedule - Encouraged regular aerobic exercise and weight loss - HGB A1C - ALBUMIN/CREAT RATIO RND UR - Discussed future expectations of daily aspirin administration, daily cholesterol lowering medication use as recommended by the ADA. 2. Essential hypertension, benign - ICD9: 401.1, ICD10: I10 - good control - Continue current medication(s) - Encouraged dietary sodium restriction/DASH diet - Recommended regular aerobic exercise. - Goal of BP <130/80 - BASIC METABOLIC PNL 3. Cough present for greater than 3 weeks - ICD9: 786.2, ICD10: R05 - Resolving post bronchitis cough, expect resolution. 4. Screening for breast cancer - ICD9: V76.10, ICD10: Z12.31 - SERGIO SCREENING 5. Smoker - ICD9: 305.1, ICD10: F17.200 - Cessation encouraged. - Physiologic and physical aspects of tobacco addiction as well as strategies for quitting were discussed. - Counseling was given focusing on the harmful effects of this addiction especially given the patient's medical condition(s) which will be worsened because of the chemicals in tobacco. - Counseling was given 3-4 minutes. - Discussed chantix, not motivated at this time. Follow up in 6 months with labs prior. RICH Hernández on 2018-04-02 CNOV Office Visit (FAMPWS) Normal 04-02-2018 [facility] WHITTAKERLAURA S ([id number]) 1970 [facility] Date Time Provider Department ([id number]) 04/02/18 11:00 AM [facility] During your visit today, we recorded the following information about you: Temperature Pulse Respiration Blood pressure 98.1 degrees 80/minute 20/minute 108/72 Weight 88.5 kg Benjamin Phillips APRN.CNP 04/02/2018 11:15 AM Signed Chief Complaint Patient presents with: F/U 3 Month: cough x 1.5 months HPI Laura Whittaker is a 47 year old female who presents here today for Above Complaints.. Patient presents to the office for 3 month follow up for diabetes, cholesterol, and hypertension. Does have a cough that has been present for 1.5 months. Did have treatment for bronchitis. Cough is occasional. Has to clear to her throat. Cough overall is getting better. DM: Does not regularly check her BG. Was checking every day or every other day. BG has been 130-140 fasting. No neuropathy, no hypoglycemia. Foot exam and eye exam are up to date. Occasional episode after metformin use, but infrequently. HTN: Does not check her blood pressure at home. No chest pain, shortness of breath. No leg swelling. Current smoker, is not motivated to quit but would like to quit. Past medical history, appointments, medications, allergies reviewed. Previous Medical History PAST MEDICAL HISTORY Diagnosis Date - Abnormal finding on Pap smear, HPV DNA positive 2008 - Dysmenorrhea - Essential hypertension, benign - Excessive or frequent menstruation Heavy periods - Irregular menstrual cycle Irregular periods - Leiomyoma of uterus, unspecified - Obesity, unspecified - Tobacco use disorder - Unspecified essential hypertension Essential hypertension Previous Surgical History PAST SURGICAL HISTORY Procedure Laterality Date - LIGATE FALLOPIAN TUBE 10/24/2005 Tubal ligation - REMOVAL GALLBLADDER Cholecystectomy [open][[ - VAGINAL HYSTERECTOMY 2012 Family History FAMILY HISTORY Problem Relation Age of Onset - Diabetes Mother - Hypertension Mother - Diabetes Father - Diabetes Maternal Grandfather Patient Allergies ALLERGIES Allergen Reactions - Voltaren [Diclofena* Rash Current Medications Current Outpatient Prescriptions on File Prior to Visit: metFORMIN ER (GLUCOPHAGE XR) 500 mg 24 hr tablet TAKE 2 TABLETS BY MOUTH DAILY WITH BREAKFAST albuterol HFA (PROVENTIL HFA, VENTOLIN HFA) 90 mcg/actuation inhaler Inhale 2 Puffs as instructed every 6 hours as needed for Wheezing/Shortness of Breath. [facility] [place] [place] blood sugar diagnostic (BLOOD GLUCOSE TEST) test strip Test blood sugar(s) 2 times daily. Dx: Type 2 DM - Uncontrolled E11.65 Insulin: No lisinopril (ZESTRIL, PRINIVIL) 5 mg tablet Take 1 tablet by mouth once daily. lancets (ONE TOUCH DELICA) 33 gauge misc Test blood sugar(s) twice daily. Dx: Type 1 DM - Uncontrolled E 10.65 Insulin: No No current facility-administered medications on file prior to visit. Social History Social History Marital status: Single Spouse name: Years of education: 12 Number of children: 1 Occupational History Occupation Employer Comment [employer] Social History Main Topics Smoking status: Current Every Day Smoker Packs/day: 0.50 Years: 21.00 Types: Cigarettes Smokeless tobacco: Never Used Alcohol use: Yes 3.0 oz/week Cans of Beer (12oz): 2 per week Comment: Occasionally Drug use: No Sexual activity: Yes Partners with: Male control/protection: Tubal Ligation REVIEW OF SYSTEMS: as above ? Reviewed relevant PMHx, PSHx, Social Hx, current medications and allergies. EXAM: BP 108/72 Pulse 80 Temp 36.7 ?C (98.1 ?F) (Tympanic) Resp 20 Wt 88.5 kg (195 lb) LMP 02/25/2012 BMI 30.31 kg/m? General Appearance: Well appearing, alert, in no acute distress, well-hydrated, well nourished.. Head: Normocephalic, no masses, lesions, tenderness or abnormalities. Eyes: Anicteric sclera. Pupils are equally round and reactive to light. Extraocular movements are intact. . Ears: External ears normal, canals clear. Nose/Sinuses: Nares normal, septum midline, mucosa normal, no drainage or sinus tenderness. Lungs: Lungs clear to auscultation. No wheezing, rhonchi, rales. Heart: RRR without murmur, gallop, or rubs. No ectopy. Extremities: No deformities, edema. Health Maintenance List BLOOD PRESSURE CONTROLLED due on 1986 DTAP,TDAP,TD(1 - Tdap) due on 1987 MAMMOGRAM due on 04/03/2018 INFLUENZA(1) due on 04/27/2018 DIABETES MED ADHERENCE due on 04/27/2018 URINE ALBUMIN:CREATININE RATIO due on 09/25/2018 HBA1C due on 10/02/2018 DIABETIC FOOT EXAM due on 10/30/2018 DILATED RETINAL EXAM due on 12/27/2018 ANNUAL PCP TEAM CHRONIC DISEASE VISIT due on 12/31/2018 LDL CHOLESTEROL due on 04/01/2019 ONE PNEUMOVAX PRIOR TO AGE 65 Completed Data reviewed Component Latest Ref Rng AND Units 04/01/2018 Protein, Total 6.3 - 8.0 g/dL 8.0 Albumin 3.9 - 4.9 g/dL 4.2 Calcium 8.5 - 10.2 mg/dL 9.5 Bilirubin, Total 0.2 - 1.3 mg/dL 0.3 Alkaline Phosphatase 32 - 117 U/L 102 AST 13 - 35 U/L 27 Glucose 74 - 99 mg/dL 121 (H) BUN 7 - 21 mg/dL 11 Creatinine 0.58 - 0.96 mg/dL 0.61 Sodium 136 - 144 mmol/L 138 Potassium 3.7 - 5.1 mmol/L 4.4 Chloride 97 - 105 mmol/L 100 CO2 22 - 30 mmol/L 24 Anion Gap 9 - 18 mmol/L 14 ALT 7 - 38 U/L 32 eGFR- >60 eGFR-All Other Races . >60 Cholesterol, Total <200 mg/dL 161 Triglyceride <150 mg/dL 119 HDL Cholesterol >39 mg/dL 34 (L) LDL Cholesterol <100 mg/dL 103 (H) Non HDL Cholesterol <130 mg/dL 127 Fasting Time hrs 3 VLDL Cholesterol <30 mg/dL 24 TC:HDL Ratio <5.10 4.74 LDL:HDL Ratio <2.54 3.03 (H) Hemoglobin A1C 4.3 - 5.6 % 6.1 (H) Estimated Average Glucose mg/dL 128 ASSESSMENT/PLAN: 1. Controlled type 2 diabetes mellitus without complication, without long-term current use of insulin (HCC) - ICD9: 250.00, ICD10: E11.9 (primary diagnosis) Controlled. - Continue current medications - Blood glucose monitoring on a once a day schedule - Encouraged regular aerobic exercise and weight loss - HGB A1C - ALBUMIN/CREAT RATIO RND UR - Discussed future expectations of daily aspirin administration, daily cholesterol lowering medication use as recommended by the ADA. 2. Essential hypertension, benign - ICD9: 401.1, ICD10: I10 - good control - Continue current medication(s) - Encouraged dietary sodium restriction/DASH diet - Recommended regular aerobic exercise. - Goal of BP <130/80 - BASIC METABOLIC PNL 3. Cough present for greater than 3 weeks - ICD9: 786.2, ICD10: R05 - Resolving post bronchitis cough, expect resolution. 4. Screening for breast cancer - ICD9: V76.10, ICD10: Z12.31 - SERGIO SCREENING 5. Smoker - ICD9: 305.1, ICD10: F17.200 - Cessation encouraged. - Physiologic and physical aspects of tobacco addiction as well as strategies for quitting were discussed. - Counseling was given focusing on the harmful effects of this addiction especially given the patient's medical condition(s) which will be worsened because of the chemicals in tobacco. - Counseling was given 3-4 minutes. - Discussed chantix, not motivated at this time. Follow up in 6 months with labs prior. Benjamin Phillips APRN.CODE ENFORCEMENT INSPECTOR Referring Provider: SUE BAH [[id number]] Allergies As of Date: 04/02/2018 Noted Allergy Reaction VOLTAREN (DICLOFENAC SODIUM) 07/19/2014 2 - Rash Date Reviewed: 04/02/2018 Reviewed by: Luzma Rivera [employer] Cell Designer - Fully Assessed Reason for Visit: F/U 3 Month [443] Cmt: cough x 1.5 months Reason For Visit History Recorded Primary Visit Diagnosis:Controlled type 2 diabetes mellitus without complication, without long-term current use of insulin (HCC) [E11.9] Other Visit Diagnoses:Essential hypertension, benign [I10] Cough present for greater than 3 weeks [R05] Screening for breast cancer [Z12.31] Smoker [F17.200] Order(s):SERGIO SCREENING [[id number]] Order #: [id number] FUTURE HGB A1C [DLVKF6A] Order #: [id number] FUTURE BASIC METABOLIC PNL [SQBMP] Order #: [id number] FUTURE ALBUMIN/CREAT RATIO RND UR [SQUACR] Order #: [id number] FUTURE Prescriptions as of 04/02/2018 Sig: METFORMIN ER 500 MG TABLET,EX* TAKE 2 TABLETS BY MOUTH DAILY* ALBUTEROL SULFATE HFA 90 MCG/* Inhale 2 Puffs as instructed * [facility] [place] BLOOD SUGAR DIAGNOSTIC STRIPS Test blood sugar(s) 2 times d* LISINOPRIL 5 MG TABLET Take 1 tablet by mouth once d* LANCETS 33 GAUGE Test blood sugar(s) twice opal* Problem List As Of Date 04/02/2018 Noted Resolved Excessive or frequent menstruation [N92.0] INVALID FOR*05/07/2012 Irregular menstrual cycle [N92.6] INVALID FOR*05/07/2012 Dysmenorrhea [N94.6] INVALID FOR*05/07/2012 Leiomyoma of uterus, unspecified [D25.9] INVALID FOR*05/07/2012 Essential hypertension, benign [I10] INVALID FOR* Uncontrolled type 2 diabetes mellitus without c*INVALID FOR*04/02/2018 Medications Discontinued During This Encounter guaiFENesin (MUCINEX) 600 mg 12 hr t* 60 t* 0 03/01/2018 04/02/2018 Route: ORAL Sig: Take 2 tablets by mouth twice daily. Disc: Course of therapy completed benzonatate (TESSALON PERLE) 100 mg * 60 c* 0 03/01/2018 04/02/2018 Route: ORAL Sig: Take 1 capsule by mouth three times daily as needed. Disc: Course of therapy completed Disposition: Return in about 6 months (around 10/03/2018) for DM/HTN f/u. Follow-up and Disposition History Recorded Encounter Status:Closed by BENJAMIN PHILLIPS CNP on 04/02/18 cnov on 2018-03-01 CNOV Office Visit (UCWSTR) Normal 03-01-2018 [facility] LAURA WHITTAKER ([id number]) 1970 [place] Date Time Provider Department ([id number]) 03/01/18 11:00 AM AMBAR CARDENAS [facility] During your visit today, we recorded the following information about you: Temperature Pulse Respiration Blood pressure 97.3 degrees 83/minute 16/minute 100/80 Weight 88 kg Ambar Cardenas APRN.CNP 03/01/2018 11:35 AM Signed [facility] PATIENT INFO BRONCHITIS OVERVIEW Bronchitis develops when there is swelling and irritation of the bronchi, the large tubes that carry air to the lungs. There are two types of bronchitis: acute (sudden onset) and chronic (long-standing). Acute bronchitis often occurs with a viral infection, such as the common cold, and is sometimes called a chest cold. The most common symptom of acute bronchitis is a nagging cough. Treatment of acute bronchitis usually involves treating the symptoms, such as sore throat and congestion. Antibiotics do not help to eliminate acute bronchitis caused by a virus. Antiviral agents are useful in some cases of acute bronchitis due to influenza, but there are antiviral agents for other forms of viral bronchitis. BRONCHITIS CAUSES Most cases of bronchitis are caused by a viral infection of the upper airways, such as the common cold or the flu. Less commonly, a bacterium such as pertussis (whooping cough) is the cause. BRONCHITIS SYMPTOMS The most common symptoms of acute bronchitis include: ? A persistent cough; this may last 10 to 20 days ? Some people cough up mucus, which may be clear, yellow, or green in color Fever is not common in people with acute bronchitis. However, having a fever can be a sign of another condition, such as the flu or pneumonia. Conditions with similar features ? There are other conditions that have symptoms similar to those of acute bronchitis. ? Chronic cough ? A persistent cough that lasts more than eight weeks is considered a chronic cough, which is discussed in detail elsewhere. ? Chronic bronchitis ? Chronic bronchitis is defined as a cough that occurs on most days of the month for at least three months of the year during two consecutive years. ? Pneumonia ? Signs of pneumonia include fever and a fast heart and breathing rate. ? Postnasal drip ? Postnasal drip occurs when secretions drain from the sinuses into the throat. This can cause the throat to feel irritated, which causes you to feel like you need to clear your throat frequently. Postnasal drip can be caused by the common cold, allergies, sinusitis, or environmental irritants. BRONCHITIS DIAGNOSIS Most people who have a persistent cough after an upper respiratory infection (cold) do not need to see a healthcare provider. Diagnostic testing, such as x-rays, cultures, and blood tests, are not usually needed for people with acute bronchitis. However, testing may be recommended if your diagnosis is not clear based upon your examination or if another condition, such as pneumonia, is suspected. When to seek help ? You should call your healthcare provider if you have any of the following: ? Fever (temperature greater than 100.4? F or 38? C) ? A cough that lasts longer than 10 days ? Chest pain with coughing, difficulty breathing, or coughing up blood ? A barking cough that makes it hard to speak, especially if it persists ? Cough accompanied by unexplained weight loss People who are older than 75 do not always have a fever or other concerning symptoms. If you are over 75 years and you have a persistent cough, you should call your clinician to determine if and when an office visit is recommended. BRONCHITIS TREATMENT Relief of symptoms ? There is no specific treatment for bronchitis, but there are a few treatments available for the common cold. ? A nonsteroidal antiinflammatory drug (ibuprofen, naproxen), aspirin, or acetaminophen (Tylenol?) can help to relieve the pain of a sore throat or headache. ? Pseudoephedrine is a decongestant that can improve nasal congestion. Most drugstores in the [place] carry pseudoephedrine behind the counter, so you must ask for it from the pharmacist (a prescription is not required). Other decongestants, such as phenylephrine, are not as effective as pseudoephedrine. Antihistamines such as diphenhydramine (Benadryl?) may also help, but can cause side effects such as drowsiness and drying of the eyes, nose, and mouth. ? Heated, humidified, air can improve symptoms of nasal congestion and runny nose, and has few to no side effects. ? Cough suppressants such as dextromethorphan may be helpful. Antibiotics ? Antibiotics are NOT helpful for most people with bronchitis since the illness is typically caused by a virus. Antibiotics treat bacterial, not viral infections. Antibiotics may be helpful for some patients with other chronic diseases. Many people request antibiotics in the hopes that it will get rid of the cough, and some people even think that antibiotics have helped on previous occasions. However, there is no benefit of antibiotics for most cases of bronchitis. PREVENTING THE SPREAD OF ILLNESS Hand washing is an essential and highly effective way to prevent the spread of infection. Wet your hands with water and plain soap and rub them together for 15 to 30 seconds. Pay special attention to the fingernails, between the fingers, and the wrists. Rinse your hands thoroughly, and dry with a single use towel. Alcohol-based hand rubs are a good alternative for disinfecting hands if a sink is not available. Spread the hand rub over the entire surface of your hands, fingers, and wrists until dry. You can use hand rubs repeatedly without irritating the skin or losing effectiveness. Hand rubs are available as a liquid or wipe in small, portable sizes that are easy to carry in a pocket or handbag. When a sink is available, you should wash visibly soiled hands with soap and water. Wash your hands before preparing food and eating, and after going to the bathroom, and after coughing, blowing the nose, or sneezing. While it is not always possible to limit contact with people who are ill, avoid touching your eyes, nose, or mouth after direct contact, when possible. In addition, use a tissue to cover your mouth when sneezing or coughing. Throw away used tissues promptly and then wash your hands. Sneezing/coughing into the sleeve of your clothing (at the inner elbow) is another way of containing sprays of saliva and secretions and does not contaminate your hands. Sneezing and coughing without covering your mouth can spread infection to anyone within 6 feet. Maricruz Patricio LPN 03/01/2018 11:38 AM Signed 2.5 solution aerosol treatment given per doctor's orders. Prior to treatment O2 Sat is 93%. Treatment completed. O2 sat is 97%. Tolerated well.Maricruz Cardenas APRN.CODE ENFORCEMENT INSPECTOR 03/01/2018 12:11 PM Signed Subjective HPI Pt presents with c/o sore throat, nasal congestion and cough x 6-7 days. States cough is frequent, harsh, moist, nonproductive. +wheezing +chest tightness +coughing fits Current every day smoker. Denies fever, chills, dyspnea. Taking claudia seltzer with no improvement. Review of Systems Constitutional: Negative for chills and fever. HENT: Positive for congestion. Negative for ear pain, nosebleeds, sinus pain and sore throat. Respiratory: Positive for cough and wheezing. Negative for hemoptysis, sputum production and shortness of breath. Cardiovascular: Negative for chest pain. Objective Physical Exam Constitutional: She is oriented to person, place, and time and well-developed, well-nourished, and in no distress. No distress. HENT: Head: Normocephalic. Right Ear: Hearing, tympanic membrane, external ear and ear canal normal. Left Ear: Hearing, tympanic membrane, external ear and ear canal normal. Nose: Nose normal. Right sinus exhibits no maxillary sinus tenderness and no frontal sinus tenderness. Left sinus exhibits no maxillary sinus tenderness and no frontal sinus tenderness. Mouth/Throat: Uvula is midline, oropharynx is clear and moist and mucous membranes are normal. No oropharyngeal exudate. Eyes: Conjunctivae are normal. Pupils are equal, round, and reactive to light. Right eye exhibits no discharge. Left eye exhibits no discharge. Neck: Neck supple. Cardiovascular: Normal rate, regular rhythm and normal heart sounds. Exam reveals no gallop and no friction rub. No murmur heard. Pulmonary/Chest: No accessory muscle usage. No respiratory distress. She has decreased breath sounds (diminished air movement throughout. Pulse ox 93% before albuterol tx. Pulse ox 97% and improved air movement after treatment.). She has wheezes. She has rhonchi. She has no rales. Lymphadenopathy: She has no cervical adenopathy. Neurological: She is alert and oriented to person, place, and time. Skin: Skin is warm and dry. She is not diaphoretic. BP 100/80 Pulse 83 Temp 36.3 ?C (97.3 ?F) (Left Tympanic) Resp 16 Wt 88 kg (194 lb) LMP 02/25/2012 SpO2 93% BMI 30.16 kg/m? .Patient presents with: Cough Head Congestion PAST MEDICAL HISTORY Diagnosis Date - Abnormal finding on Pap smear, HPV DNA positive 2008 - Dysmenorrhea - Essential hypertension, benign - Excessive or frequent menstruation Heavy periods - Irregular menstrual cycle Irregular periods - Leiomyoma of uterus, unspecified - Obesity, unspecified - Tobacco use disorder - Unspecified essential hypertension Essential hypertension PAST SURGICAL HISTORY Procedure Laterality Date - LIGATE FALLOPIAN TUBE 10/24/2005 Tubal ligation - REMOVAL GALLBLADDER Cholecystectomy [open][[ - VAGINAL HYSTERECTOMY 2012 ALLERGIES Voltaren [Diclofenac Sodium] MEDICATIONS metFORMIN ER (GLUCOPHAGE XR) 500 mg 24 hr tablet Take 2 tablets by mouth daily with breakfast. lancets (ONE TOUCH DELICA) 33 gauge [facility] [place] Test blood sugar(s) twice daily. Dx: Type 1 DM - Uncontrolled E 10.65 Insulin: No [facility] [place] [place] blood sugar diagnostic (BLOOD GLUCOSE TEST) test strip Test blood sugar(s) 2 times daily. Dx: Type 2 DM - Uncontrolled E11.65 Insulin: No lisinopril (ZESTRIL, PRINIVIL) 5 mg tablet Take 1 tablet by mouth once daily. predniSONE (DELTASONE) 20 mg tablet Take 2 tablets by mouth once daily for 5 days. Take daily with food. albuterol HFA (PROVENTIL HFA, VENTOLIN HFA) 90 mcg/actuation inhaler Inhale 2 Puffs as instructed every 6 hours as needed for Wheezing/Shortness of Breath. guaiFENesin (MUCINEX) 600 mg 12 hr tablet Take 2 tablets by mouth twice daily. benzonatate (TESSALON PERLE) 100 mg capsule Take 1 capsule by mouth three times daily as needed. FAMILY HISTORY Problem Relation Age of Onset - Diabetes Mother - Hypertension Mother - Diabetes Father - Diabetes Maternal Grandfather Social History Substance Use Topics - Smoking status: Current Every Day Smoker Packs/day: 0.50 Years: 21.00 Types: Cigarettes - Smokeless tobacco: Never Used - Alcohol use 3.0 oz/week 2 Cans of Beer (12oz) per week Comment: Occasionally ASSESSMENT/PLAN: 1. Abnormal breath sounds - ICD9: 786.7, ICD10: R06.89 (primary diagnosis) - XR CHEST 2V FRONTAL/LAT Pt to [place] for xray. Will notify of results. 2. Wheezing - ICD9: 786.07, ICD10: R06.2 - ALBUTEROL SULFATE 2.5 MG/3 ML (0.083 %) SOLUTION FOR NEBULIZATION - PREDNISONE 20 MG TABLET - ALBUTEROL SULFATE HFA 90 MCG/ACTUATION AEROSOL INHALER 3. Cough - ICD9: 786.2, ICD10: R05 - GUAIFENESIN ER 600 MG TABLET, EXTENDED RELEASE 12 HR - BENZONATATE 100 MG CAPSULE The patient is instructed to return or seek emergency treatment if symptoms become worse or with any acute change in condition. The patient verbalizes understanding and is in agreement with plan of care. Ambar Cardenas CNP Referring Provider: SELF [[id number]] Allergies As of Date: 03/01/2018 Noted Allergy Reaction VOLTAREN (DICLOFENAC SODIUM) 07/19/2014 2 - Rash Date Reviewed: 03/01/2018 Reviewed by: Candace Rosa Ma - Fully Assessed Reason for Visit: Cough [28] Head Congestion [234] Primary Visit Diagnosis:Abnormal breath sounds [R06.89] Other Visit Diagnoses:Wheezing [R06.2] Cough [R05] Order(s):[] albuterol 2.5 mg /3 mL (0.083 %) 2.5 mg (PROVENTIL)Disp: Rfl: XR CHEST 2V FRONTAL/LAT [[id number]] Order #: [id number] FUTURE predniSONE (DELTASONE) 20 mg tabletTake 2 tablets by mouth once daily for 5 days. Take daily with food.Disp: 10 tabletRfl: 0 albuterol HFA (PROVENTIL HFA, VENTOLIN HFA) 90 mcg/actuation inhalerInhale 2 Puffs as instructed every 6 hours as needed for Wheezing/Shortness of Breath.Disp: 1 InhalerRfl: 0 guaiFENesin (MUCINEX) 600 mg 12 hr tabletTake 2 tablets by mouth twice daily.Disp: 60 tabletRfl: 0 benzonatate (TESSALON PERLE) 100 mg capsuleTake 1 capsule by mouth three times daily as needed.Disp: 60 capsuleRfl: 0 Prescriptions as of 03/01/2018 Sig: METFORMIN ER 500 MG TABLET,EX* Take 2 tablets by mouth daily* LANCETS 33 GAUGE Test blood sugar(s) twice opal* [facility] [place] BLOOD SUGAR DIAGNOSTIC STRIPS Test blood sugar(s) 2 times d* LISINOPRIL 5 MG TABLET Take 1 tablet by mouth once d* PREDNISONE 20 MG TABLET Take 2 tablets by mouth once * ALBUTEROL SULFATE HFA 90 MCG/* Inhale 2 Puffs as instructed * GUAIFENESIN ER 600 MG TABLET,* Take 2 tablets by mouth twice* BENZONATATE 100 MG CAPSULE Take 1 capsule by mouth three* Problem List As Of Date 03/01/2018 Noted Resolved Excessive or frequent menstruation [N92.0] INVALID FOR*05/07/2012 Irregular menstrual cycle [N92.6] INVALID FOR*05/07/2012 Dysmenorrhea [N94.6] INVALID FOR*05/07/2012 Leiomyoma of uterus, unspecified [D25.9] INVALID FOR*05/07/2012 Essential hypertension, benign [I10] INVALID FOR* Uncontrolled type 2 diabetes mellitus without c*INVALID FOR* Other instructions from your clinician: [facility] PATIENT INFO BRONCHITIS OVERVIEW Bronchitis develops when there is swelling and irritation of the bronchi, the large tubes that carry air to the lungs. There are two types of bronchitis: acute (sudden onset) and chronic (long-standing). Acute bronchitis often occurs with a viral infection, such as the common cold, and is sometimes called a chest cold. The most common symptom of acute bronchitis is a nagging cough. Treatment of acute bronchitis usually involves treating the symptoms, such as sore throat and congestion. Antibiotics do not help to eliminate acute bronchitis caused by a virus. Antiviral agents are useful in some cases of acute bronchitis due to influenza, but there are antiviral agents for other forms of viral bronchitis. BRONCHITIS CAUSES Most cases of bronchitis are caused by a viral infection of the upper airways, such as the common cold or the flu. Less commonly, a bacterium such as pertussis (whooping cough) is the cause. BRONCHITIS SYMPTOMS The most common symptoms of acute bronchitis include: ? A persistent cough; this may last 10 to 20 days ? Some people cough up mucus, which may be clear, yellow, or green in color Fever is not common in people with acute bronchitis. However, having a fever can be a sign of another condition, such as the flu or pneumonia. Conditions with similar features ? There are other conditions that have symptoms similar to those of acute bronchitis. ? Chronic cough ? A persistent cough that lasts more than eight weeks is considered a chronic cough, which is discussed in detail elsewhere. ? Chronic bronchitis ? Chronic bronchitis is defined as a cough that occurs on most days of the month for at least three months of the year during two consecutive years. ? Pneumonia ? Signs of pneumonia include fever and a fast heart and breathing rate. ? Postnasal drip ? Postnasal drip occurs when secretions drain from the sinuses into the throat. This can cause the throat to feel irritated, which causes you to feel like you need to clear your throat frequently. Postnasal drip can be caused by the common cold, allergies, sinusitis, or environmental irritants. BRONCHITIS DIAGNOSIS Most people who have a persistent cough after an upper respiratory infection (cold) do not need to see a healthcare provider. Diagnostic testing, such as x-rays, cultures, and blood tests, are not usually needed for people with acute bronchitis. However, testing may be recommended if your diagnosis is not clear based upon your examination or if another condition, such as pneumonia, is suspected. When to seek help ? You should call your healthcare provider if you have any of the following: ? Fever (temperature greater than 100.4? F or 38? C) ? A cough that lasts longer than 10 days ? Chest pain with coughing, difficulty breathing, or coughing up blood ? A barking cough that makes it hard to speak, especially if it persists ? Cough accompanied by unexplained weight loss People who are older than 75 do not always have a fever or other concerning symptoms. If you are over 75 years and you have a persistent cough, you should call your clinician to determine if and when an office visit is recommended. BRONCHITIS TREATMENT Relief of symptoms ? There is no specific treatment for bronchitis, but there are a few treatments available for the common cold. ? A nonsteroidal antiinflammatory drug (ibuprofen, naproxen), aspirin, or acetaminophen (Tylenol?) can help to relieve the pain of a sore throat or headache. ? Pseudoephedrine is a decongestant that can improve nasal congestion. Most drugstores in the [place] carry pseudoephedrine behind the counter, so you must ask for it from the pharmacist (a prescription is not required). Other decongestants, such as phenylephrine, are not as effective as pseudoephedrine. Antihistamines such as diphenhydramine (Benadryl?) may also help, but can cause side effects such as drowsiness and drying of the eyes, nose, and mouth. ? Heated, humidified, air can improve symptoms of nasal congestion and runny nose, and has few to no side effects. ? Cough suppressants such as dextromethorphan may be helpful. Antibiotics ? Antibiotics are NOT helpful for most people with bronchitis since the illness is typically caused by a virus. Antibiotics treat bacterial, not viral infections. Antibiotics may be helpful for some patients with other chronic diseases. Many people request antibiotics in the hopes that it will get rid of the cough, and some people even think that antibiotics have helped on previous occasions. However, there is no benefit of antibiotics for most cases of bronchitis. PREVENTING THE SPREAD OF ILLNESS Hand washing is an essential and highly effective way to prevent the spread of infection. Wet your hands with water and plain soap and rub them together for 15 to 30 seconds. Pay special attention to the fingernails, between the fingers, and the wrists. Rinse your hands thoroughly, and dry with a single use towel. Alcohol-based hand rubs are a good alternative for disinfecting hands if a sink is not available. Spread the hand rub over the entire surface of your hands, fingers, and wrists until dry. You can use hand rubs repeatedly without irritating the skin or losing effectiveness. Hand rubs are available as a liquid or wipe in small, portable sizes that are easy to carry in a pocket or handbag. When a sink is available, you should wash visibly soiled hands with soap and water. Wash your hands before preparing food and eating, and after going to the bathroom, and after coughing, blowing the nose, or sneezing. While it is not always possible to limit contact with people who are ill, avoid touching your eyes, nose, or mouth after direct contact, when possible. In addition, use a tissue to cover your mouth when sneezing or coughing. Throw away used tissues promptly and then wash your hands. Sneezing/coughing into the sleeve of your clothing (at the inner elbow) is another way of containing sprays of saliva and secretions and does not contaminate your hands. Sneezing and coughing without covering your mouth can spread infection to anyone within 6 feet. Visit Notes: >> Maricruz Patricio LPN SunMar 01, 2018 11:37 AM Status: Signed 2.5 solution aerosol treatment given per doctor's orders. Prior to treatment O2 Sat is 93%. Treatment completed. O2 sat is 97%. Tolerated well.Maricruz Patricio LPN Prescriptions ordered this encounter Disp Refills Start End ALBUTEROL SULFATE 2.5 MG/3 ML (0.083* 03/01/2018 03/01/2018 Route: INHALATION PREDNISONE 20 MG TABLET 10 t* 0 03/01/2018 03/06/2018 Route: ORAL Sig: Take 2 tablets by mouth once daily for 5 days. Take daily with food. ALBUTEROL SULFATE HFA 90 MCG/ACTUATI* 1 In* 0 03/01/2018 Route: INHALATION Sig: Inhale 2 Puffs as instructed every 6 hours as needed for Wheezing/Shortness of Breath. GUAIFENESIN ER 600 MG TABLET, EXTEND* 60 t* 0 03/01/2018 Route: ORAL Sig: Take 2 tablets by mouth twice daily. BENZONATATE 100 MG CAPSULE 60 c* 0 03/01/2018 Route: ORAL Sig: Take 1 capsule by mouth three times daily as needed. Encounter Status:Closed by AMBAR CARDENAS CNP on 03/01/18 progress on 2017-12-31 Protein mass HNO ID: [id number] Normal 12-31-2017 [facility] Author: Sue Bah ([id number]) Service: (none) Author Type: Physician Type: Progress Notes Filed: 12/31/2017 10:59 AM Note Text: Chief Complaint Patient presents with: Recheck: DM and HTN HPI Laura Whittaker is a 47 year old female who presents here today for a 2 mo f/u. Patient here today for a 2 mo f/u. Still smoking, unable to quit yet. Currently working at [employer]. DM - Checks sugars twice daily with FBS ranging from 160-200. Denies any hypoglycemic events. Denies any neuropathy symptoms in bilateral feet. Currently taking Metformin 500 mg 2 tabs with breakfast. Denies any issue with medication regimen. Doesn't really feel any different since being diagnosed other then not urinating as much. Has cut out Mountain Dew pop, only drinking some occasionally. Met with [employer] to help learn the foods she needs to eat vs not. HTN - Denies checking BP at home, but states that is usually WNL. Denies any chest pain, sob or dizziness. Currently taking Lisinopril 5 mg 1 tab po once daily. Doing well with regimen. Completed DM Eye Exam. Past medical history, appointments, medications, allergies reviewed. Previous Medical History PAST MEDICAL HISTORY Diagnosis Date - Abnormal finding on Pap smear, HPV DNA positive 2008 - Dysmenorrhea - Essential hypertension, benign - Excessive or frequent menstruation Heavy periods - Irregular menstrual cycle Irregular periods - Leiomyoma of uterus, unspecified - Obesity, unspecified - Tobacco use disorder - Unspecified essential hypertension Essential hypertension Previous Surgical History PAST SURGICAL HISTORY Procedure Laterality Date - LIGATE FALLOPIAN TUBE 10/24/2005 Tubal ligation - REMOVAL GALLBLADDER Cholecystectomy [open][[ - VAGINAL HYSTERECTOMY 2012 Family History FAMILY HISTORY Problem Relation Age of Onset - Diabetes Mother - Hypertension Mother - Diabetes Father - Diabetes Maternal Grandfather Patient Allergies ALLERGIES Allergen Reactions - Voltaren [Diclofena* Rash Current Medications Current Outpatient Prescriptions on File Prior to Visit: FRANCIA'S WORT, BULK, MISC metFORMIN ER (GLUCOPHAGE XR) 500 mg 24 hr tablet Take 2 tablets by mouth daily with breakfast. lisinopril (ZESTRIL, PRINIVIL) 5 mg tablet Take 1 tablet by mouth once daily. blood sugar diagnostic (BLOOD GLUCOSE TEST) test strip Test blood sugar(s) 2 times daily. Dx: Type 2 DM - Uncontrolled E11.65 Insulin: No No current facility-administered medications on file prior to visit. Social History Social History Marital status: Single Spouse name: Years of education: 12 Number of children: 1 Occupational History Occupation Employer Comment [employer] Social History Main Topics Smoking status: Current Every Day Smoker Packs/day: 0.50 Years: 21.00 Types: Cigarettes Smokeless tobacco: Never Used Alcohol use: Yes 3.0 oz/week Cans of Beer (12oz): 2 per week Comment: Occasionally Drug use: No Sexual activity: Yes Partners with: Male control/protection: Tubal Ligation EXAM: BP 108/78 (BP Site: Left Arm, BP Position: Sitting, BP Cuff Size: Regular Adult) Pulse 76 Resp 16 Wt 91.7 kg (202 lb 3.2 oz) LMP 02/25/2012 BMI 31.43 kg/m? General Appearance: Well appearing, alert, in no acute distress, well-hydrated, well nourished., Overweight. Lungs: Lungs clear to auscultation. No wheezing, rhonchi, rales. Heart: RRR without murmur, gallop, or rubs. No ectopy. Health Maintenance List DTAP,TDAP,TD(1 - Tdap) due on 1987 MAMMOGRAM due on 04/03/2018 HBA1C due on 06/28/2018 URINE ALBUMIN CREATININE RATIO due on 09/25/2018 DIABETIC FOOT EXAM due on 10/30/2018 LDL due on 12/26/2018 DILATED RETINAL EXAM due on 12/27/2018 ONE PNEUMOVAX PRIOR TO AGE 65 Completed INFLUENZA Completed Data reviewed Appointment on 12/26/2017 Component Date Value - Hemoglobin A1C 12/26/2017 8.3* - Estimated Average Glucose 12/26/2017 192 - Protein, Total 12/26/2017 8.0 - Albumin 12/26/2017 4.0 - Calcium 12/26/2017 9.2 - Bilirubin, Total 12/26/2017 0.3 - Alkaline Phosphatase 12/26/2017 112 - AST 12/26/2017 27 - Glucose 12/26/2017 94 - BUN 12/26/2017 9 - Creatinine 12/26/2017 0.59 - Sodium 12/26/2017 136 - Potassium 12/26/2017 4.8 - Chloride 12/26/2017 96* - CO2 12/26/2017 26 - Anion Gap 12/26/2017 14 - ALT 12/26/2017 34 - eGFR- 12/26/2017 >60 - eGFR-All Other Races 12/26/2017 >60 - Cholesterol, Total 12/26/2017 146 - Triglyceride 12/26/2017 151* - HDL Cholesterol 12/26/2017 34* - LDL Cholesterol 12/26/2017 82 - Non HDL Cholesterol 12/26/2017 112 - Fasting Time 12/26/2017 3 - VLDL Cholesterol 12/26/2017 30* - TC:HDL Ratio 12/26/2017 4.29 - LDL:HDL Ratio 12/26/2017 2.41 Office Visit on 12/06/2017 Component Date Value - Glucose, Urine 12/06/2017 2000 - Bilirubin, Urine 12/06/2017 neg - Ketones, Urine 12/06/2017 neg - Specific [place], Ur 12/06/2017 1.020 - Hemoglobin/Blood,Ur 12/06/2017 neg - pH, Urine 12/06/2017 5.0 - Protein, Urine 12/06/2017 trace - Urobilinogen, Urine 12/06/2017 0.2 - Nitrites 12/06/2017 positive - Leukocytes 12/06/2017 neg - Color/Appearance 12/06/2017 yellow / clear - Quality Check 12/06/2017 Yes - Specimen Request 12/06/2017 Specimen received in preservative ASSESSMENT/PLAN: 1. Type 2 diabetes mellitus without complication, without long-term current use of insulin (HCC) - ICD9: 250.00, ICD10: E11.9 (primary diagnosis) improved control - Continue current medications - METFORMIN ER 500 MG TABLET,EXTENDED RELEASE 24 HR - LANCETS 33 GAUGE - COMP METABOLIC PANEL - HGB A1C - LIPID PANEL BASIC 2. Essential hypertension, benign - ICD9: 401.1, ICD10: I10 - good control - Continue current medication(s) - Goal of BP <130/80 - COMP METABOLIC PANEL - LIPID PANEL BASIC 3 mo f/u with labs. Sue Bah MD The documentation for this note was completed by Adia Wilde Ma acting as scribe for Sue Bah December 31, 2017 9:48 AM. cnov on 2017-12-31 CNOV Office Visit (FAMPWS) Normal 12-31-2017 [facility] LAURA WHITTAKER ([id number]) 1970 F [place] Date Time Provider Department ([id number]) 12/31/17 9:40 AM SUE BAH FAMPWS During your visit today, we recorded the following information about you: Pulse Respiration Blood pressure Weight 76/minute 16/minute 108/78 91.7 kg Sue Bah 12/31/2017 10:59 AM Signed Chief Complaint Patient presents with: Recheck: DM and HTN HPI Laura Whittaker is a 47 year old female who presents here today for a 2 mo f/u. Patient here today for a 2 mo f/u. Still smoking, unable to quit yet. Currently working at [employer]. DM - Checks sugars twice daily with FBS ranging from 160-200. Denies any hypoglycemic events. Denies any neuropathy symptoms in bilateral feet. Currently taking Metformin 500 mg 2 tabs with breakfast. Denies any issue with medication regimen. Doesn't really feel any different since being diagnosed other then not urinating as much. Has cut out Mountain Dew pop, only drinking some occasionally. Met with [employer] to help learn the foods she needs to eat vs not. HTN - Denies checking BP at home, but states that is usually WNL. Denies any chest pain, sob or dizziness. Currently taking Lisinopril 5 mg 1 tab po once daily. Doing well with regimen. Completed DM Eye Exam. Past medical history, appointments, medications, allergies reviewed. Previous Medical History PAST MEDICAL HISTORY Diagnosis Date - Abnormal finding on Pap smear, HPV DNA positive 2008 - Dysmenorrhea - Essential hypertension, benign - Excessive or frequent menstruation Heavy periods - Irregular menstrual cycle Irregular periods - Leiomyoma of uterus, unspecified - Obesity, unspecified - Tobacco use disorder - Unspecified essential hypertension Essential hypertension Previous Surgical History PAST SURGICAL HISTORY Procedure Laterality Date - LIGATE FALLOPIAN TUBE 10/24/2005 Tubal ligation - REMOVAL GALLBLADDER Cholecystectomy [open][[ - VAGINAL HYSTERECTOMY 2012 Family History FAMILY HISTORY Problem Relation Age of Onset - Diabetes Mother - Hypertension Mother - Diabetes Father - Diabetes Maternal Grandfather Patient Allergies ALLERGIES Allergen Reactions - Voltaren [Diclofena* Rash Current Medications Current Outpatient Prescriptions on File Prior to Visit: FRANCIA'S WORT, BULK, MISC metFORMIN ER (GLUCOPHAGE XR) 500 mg 24 hr tablet Take 2 tablets by mouth daily with breakfast. lisinopril (ZESTRIL, PRINIVIL) 5 mg tablet Take 1 tablet by mouth once daily. blood sugar diagnostic (BLOOD GLUCOSE TEST) test strip Test blood sugar(s) 2 times daily. Dx: Type 2 DM - Uncontrolled E11.65 Insulin: No No current facility-administered medications on file prior to visit. Social History Social History Marital status: Single Spouse name: Years of education: 12 Number of children: 1 Occupational History Occupation Employer Comment [employer] Social History Main Topics Smoking status: Current Every Day Smoker Packs/day: 0.50 Years: 21.00 Types: Cigarettes Smokeless tobacco: Never Used Alcohol use: Yes 3.0 oz/week Cans of Beer (12oz): 2 per week Comment: Occasionally Drug use: No Sexual activity: Yes Partners with: Male control/protection: Tubal Ligation EXAM: BP 108/78 (BP Site: Left Arm, BP Position: Sitting, BP Cuff Size: Regular Adult) Pulse 76 Resp 16 Wt 91.7 kg (202 lb 3.2 oz) LMP 02/25/2012 BMI 31.43 kg/m? General Appearance: Well appearing, alert, in no acute distress, well-hydrated, well nourished., Overweight. Lungs: Lungs clear to auscultation. No wheezing, rhonchi, rales. Heart: RRR without murmur, gallop, or rubs. No ectopy. Health Maintenance List DTAP,TDAP,TD(1 - Tdap) due on 1987 MAMMOGRAM due on 04/03/2018 HBA1C due on 06/28/2018 URINE ALBUMIN CREATININE RATIO due on 09/25/2018 DIABETIC FOOT EXAM due on 10/30/2018 LDL due on 12/26/2018 DILATED RETINAL EXAM due on 12/27/2018 ONE PNEUMOVAX PRIOR TO AGE 65 Completed INFLUENZA Completed Data reviewed Appointment on 12/26/2017 Component Date Value - Hemoglobin A1C 12/26/2017 8.3* - Estimated Average Glucose 12/26/2017 192 - Protein, Total 12/26/2017 8.0 - Albumin 12/26/2017 4.0 - Calcium 12/26/2017 9.2 - Bilirubin, Total 12/26/2017 0.3 - Alkaline Phosphatase 12/26/2017 112 - AST 12/26/2017 27 - Glucose 12/26/2017 94 - BUN 12/26/2017 9 - Creatinine 12/26/2017 0.59 - Sodium 12/26/2017 136 - Potassium 12/26/2017 4.8 - Chloride 12/26/2017 96* - CO2 12/26/2017 26 - Anion Gap 12/26/2017 14 - ALT 12/26/2017 34 - eGFR- 12/26/2017 >60 - eGFR-All Other Races 12/26/2017 >60 - Cholesterol, Total 12/26/2017 146 - Triglyceride 12/26/2017 151* - HDL Cholesterol 12/26/2017 34* - LDL Cholesterol 12/26/2017 82 - Non HDL Cholesterol 12/26/2017 112 - Fasting Time 12/26/2017 3 - VLDL Cholesterol 12/26/2017 30* - TC:HDL Ratio 12/26/2017 4.29 - LDL:HDL Ratio 12/26/2017 2.41 Office Visit on 12/06/2017 Component Date Value - Glucose, Urine 12/06/2017 2000 - Bilirubin, Urine 12/06/2017 neg - Ketones, Urine 12/06/2017 neg - Specific [place], Ur 12/06/2017 1.020 - Hemoglobin/Blood,Ur 12/06/2017 neg - pH, Urine 12/06/2017 5.0 - Protein, Urine 12/06/2017 trace - Urobilinogen, Urine 12/06/2017 0.2 - Nitrites 12/06/2017 positive - Leukocytes 12/06/2017 neg - Color/Appearance 12/06/2017 yellow / clear - Quality Check 12/06/2017 Yes - Specimen Request 12/06/2017 Specimen received in preservative ASSESSMENT/PLAN: 1. Type 2 diabetes mellitus without complication, without long-term current use of insulin (HCC) - ICD9: 250.00, ICD10: E11.9 (primary diagnosis) improved control - Continue current medications - METFORMIN ER 500 MG TABLET,EXTENDED RELEASE 24 HR - LANCETS 33 GAUGE - COMP METABOLIC PANEL - HGB A1C - LIPID PANEL BASIC 2. Essential hypertension, benign - ICD9: 401.1, ICD10: I10 - good control - Continue current medication(s) - Goal of BP <130/80 - COMP METABOLIC PANEL - LIPID PANEL BASIC 3 mo f/u with labs. Sue Bah MD The documentation for this note was completed by Adia Wilde Ma acting as scribe for Sue Bah. December 31, 2017 9:48 AM. Referring Provider: SUE BAH [[id number]] Allergies As of Date: 12/31/2017 Noted Allergy Reaction VOLTAREN (DICLOFENAC SODIUM) 07/19/2014 2 - Rash Date Reviewed: 12/31/2017 Reviewed by: Adia Wilde Ma - Fully Assessed Reason for Visit: Recheck [92] Cmt: DM and HTN Primary Visit Diagnosis:Type 2 diabetes mellitus without complication, without long-term current use of insulin (HCC) [E11.9] Other Visit Diagnosis:Essential hypertension, benign [I10] Order(s):metFORMIN ER (GLUCOPHAGE XR) 500 mg 24 hr tabletTake 2 tablets by mouth daily with breakfast.Disp: 60 tabletRfl: 2 lancets (ONE TOUCH DELICA) 33 gauge miscTest blood sugar(s) twice daily. Dx: Type 1 DM - Uncontrolled E 10.65 Insulin: NoDisp: 1 EachRfl: 1 COMP METABOLIC PANEL [SQCMP] Order #: [id number] FUTURE HGB A1C [LSVMI4Q] Order #: [id number] FUTURE LIPID PANEL BASIC [SQLIPB] Order #: [id number] FUTURE Prescriptions as of 12/31/2017 Sig: METFORMIN ER 500 MG TABLET,EX* Take 2 tablets by mouth daily* FRANCIA'S WORT (BULK) MISC LISINOPRIL 5 MG TABLET Take 1 tablet by mouth once d* LANCETS 33 GAUGE Test blood sugar(s) twice opal* BLOOD SUGAR DIAGNOSTIC STRIPS Test blood sugar(s) 2 times d* Medication notes this encounter FRANCIA'S WORT (BULK) MISC >> Adia Wilde Ma 12/31/2017 9:44 AM >> ADIA WILDE MA Mon December 31, 2017 9:44 AM Uses occasionally. December 31, 2017 Adia Wilde Ma Problem List As Of Date 12/31/2017 Noted Resolved Excessive or frequent menstruation [N92.0] INVALID FOR*05/07/2012 Irregular menstrual cycle [N92.6] INVALID FOR*05/07/2012 Dysmenorrhea [N94.6] INVALID FOR*05/07/2012 Leiomyoma of uterus, unspecified [D25.9] INVALID FOR*05/07/2012 Essential hypertension, benign [I10] INVALID FOR* Uncontrolled type 2 diabetes mellitus without c*INVALID FOR* Prescriptions ordered this encounter Disp Refills Start End METFORMIN ER 500 MG TABLET,EXTENDED * 60 t* 2 12/31/2017 Route: ORAL Sig: Take 2 tablets by mouth daily with breakfast. LANCETS 33 GAUGE 1 Ea* 1 12/31/2017 Sig: Test blood sugar(s) twice daily. Dx: Type 1 DM - Uncontrolled E 10.65 Insulin: No Medications Discontinued During This Encounter Lancets lancets 100 * 11 10/29/2017 12/31/2017 Class: Print RX Sig: Test blood sugar(s) 2 times daily. Dx: Type 2 DM - Uncontrolled E11.65 Insulin: No Disc: Changing Therapy/Dosage Form metFORMIN ER (GLUCOPHAGE XR) 500 mg * 60 t* 2 10/08/2017 12/31/2017 Route: ORAL Sig: Take 2 tablets by mouth daily with breakfast. Disc: Reason for discontinue is not on file. Disposition: Return in about 3 months (around 04/02/2018). Follow-up and Disposition History Recorded Encounter Status:Closed by SUE BAH MD on 12/31/17 lipid panel, basic on 2017-12-26 Cholesterol in HDL mass conc 34 >39 mg/dL Low 12-26-2017 [facility] ([id number]) Comment: Result Comment: 40-59 mg/dL, Acceptable >59 mg/dL, High: Negative risk factor for coronary heart disease <40 mg/dL, Low: Positive risk factor for coronary heart disease Performed By: #### CMP, LIPB, HBA1C #### [facility] [address] [place], [place] [address] Cholesterol in LDL mass conc 82 <100 mg/dL Normal 12-26-2017 [facility] ([id number]) Comment: Result Comment: <100 mg/dL, Optimal 100-129 mg/dL, Near optimal/above optimal 130-159 mg/dL, Borderline high 160-189 mg/dL, High >189 mg/dL, Very high Secondary prevention optimal LDL Cholesterol levels are recommended to be < 70 mg/dL Performed By: #### CMP, LIPB, HBA1C #### [facility] [address] [place] [address] Cholesterol mass conc 146 <200 mg/dL Normal 12-26-2017 [facility] ([id number]) Comment: Result Comment: <200 mg/dL, Desirable 200-239 mg/dL, Borderline high >239 mg/dL, High Performed By: #### CMP, LIPB, HBA1C #### [facility] [address] [place] [phone] Fasting Time 3 hrs Normal 12-26-2017 [facility] ([id number]) Comment: Performed By: #### CMP, LIPB, HBA1C #### [place] [id number] [place] [phone] LDL:HDL Ratio 2.41 <2.54 Normal 12-26-2017 [facility] ([id number]) Comment: Result Comment: Reference: 1. National Cholesterol Education Program ATP III Guideline At-A-Glance Quick Desk Reference: National Heart, Lung, and Blood [place]. National Institutes of Health. 2001: NIH Publication No. 01-3305. 2. An International Atherosclerosis Society position paper: global recommendations for the management of dyslipidemia: executive summary, Atherosclerosis. 2014: 232(2):410-413. Performed By: #### CMP, LIPB, HBA1C #### [facility] [address] [place] [phone] Non HDL Cholesterol 112 <130 mg/dL Normal 12-26-2017 [facility] ([id number]) Comment: Result Comment: <130 mg/dL, Optimal 130-159 mg/dL, Near optimal/above optimal 160-189 mg/dL, Borderline high 190-219 mg/dL, High >219 mg/dL, Very high Secondary prevention optimal non HDL Cholesterol levels are recommended to be < 100 mg/dL Performed By: #### CMP, LIPB, HBA1C #### [facility] [address] [place] [phone] TC:HDL Ratio 4.29 <5.10 Normal 12-26-2017 [facility] ([id number]) Comment: Performed By: #### CMP, LIPB, HBA1C #### [facility] [facility] [address] [address] Triglyceride mass conc 151 <150 mg/dL High 12-26-2017 [facility] ([id number]) Comment: Result Comment: <150 mg/dL, Normal 150-199 mg/dL, Borderline high 200-499 mg/dL, High >499 mg/dL, Very high Performed By: #### CMP, LIPB, HBA1C #### [place] [address] [place] [phone] VLDL Cholesterol 30 <30 mg/dL High 12-26-2017 [facility] ([id number]) Comment: Performed By: #### CMP, LIPB, HBA1C #### [place] [address] [place] [address] hemoglobin a1c on 2017-12-26 Hemoglobin A1c/Hemoglobin.total 192 mg/dL Normal 12-26-2017 [facility] mass fraction (d) [place] ([id number]) Comment: Result Comment: eAG: (Estimated average glucose) is a calculated value from HgbA1c and is surgical sales representative of the average blood glucose level in the last 2-3 month period. Performed By: #### CMP, LIPB, HBA1C #### [facility] [place] [phone] Hemoglobin A1c/Hemoglobin.total 8.3 4.3-5.6 % High 12-26-2017 [facility] mass fraction (Bld) [place] ([id number]) Comment: Performed By: #### CMP, LIPB, HBA1C #### [place] [address] [place] [address] comp metabolic panel on 2017-12-26 Albumin mass conc 4.0 3.9-4.9 g/dL Normal 12-26-2017 [facility] ([id number]) Comment: Performed By: #### CMP, LIPB, HBA1C #### [place] [address] [place] [address] ALP enzyme act/vol 112 32-117 U/L Normal 12-26-2017 [facility] ([id number]) Comment: Performed By: #### CMP, LIPB, HBA1C #### [facility] [address] [address] ALT enzyme act/vol 34 7-38 U/L Normal 12-26-2017 [facility] ([id number]) Comment: Performed By: #### CMP, LIPB, HBA1C #### [facility] [address] [phone] Anion gap molar conc 14 9-18 mmol/L Normal 12-26-2017 [facility] ([id number]) Comment: Performed By: #### CMP, LIPB, HBA1C #### [place] [address] [place] [phone] AST enzyme act/vol 27 13-35 U/L Normal 12-26-2017 [facility] ([id number]) Comment: Performed By: #### CMP, LIPB, HBA1C #### [place] [phone] Bilirubin mass conc 0.3 0.2-1.3 mg/dL Normal 12-26-2017 [facility] ([id number]) Comment: Performed By: #### CMP, LIPB, HBA1C #### [place] [address] [place] [phone] Calcium mass conc 9.2 8.5-10.2 mg/dL Normal 12-26-2017 [facility] ([id number]) Comment: Performed By: #### CMP, LIPB, HBA1C #### [place] [address] [place] [address] Chloride molar conc 96 97-105 mmol/L Low 12-26-2017 [facility] ([id number]) Comment: Performed By: #### CMP, LIPB, HBA1C #### [facility] [address] [phone] CO2 molar conc 26 22-30 mmol/L Normal 12-26-2017 [facility] ([id number]) Comment: Performed By: #### CMP, LIPB, HBA1C #### [facility] [address] [place] [phone] Creatinine mass conc 0.59 0.58-0.96 mg/dL Normal 12-26-2017 [facility] ([id number]) Comment: Performed By: #### CMP, LIPB, HBA1C #### [facility] [address] [place] [address] eGFR- Amer. >60 Normal 12-26-2017 [facility] ([id number]) Comment: Performed By: #### CMP, LIPB, HBA1C #### [facility] [address] [address] GFR/1.73 sq M predicted >60 mL/min/{1.73_m2} Normal 12-26-2017 [facility] among non-blacks MDRD [place] ([id number]) vol rate/area (S/P/Bld) Comment: Result Comment: eGFR (Estimated GFR) Units of measure: mL/min/1.73 meters squared eGFR is derived from the reexpressed MDRD Study equation using the following parameters: serum creatinine, age, gender and race. The creatinine assay has been calibrated to be traceable to IDMS. An eGFR <60 mL/min/1.73m2 for >3 months is consistent with chronic kidney disease. Refer to KDOQI guidelines for clinical interpretation. In patients with unstable renal function, e.g. those with acute kidney injury, the eGFR may not accurately reflect actual GFR. Performed By: #### CMP, LIPB, HBA1C #### [facility] [address] [place] [phone] Glucose mass conc 94 74-99 mg/dL Normal 12-26-2017 [facility] ([id number]) Comment: Result Comment: The [place] [employer] (ADA) provides guidance for cutoff values for fasting glucose and random glucose. The ADA defines fasting as no caloric intake for at least 8 hours. Fas ting plasma glucose results between 100 to 125 mg/dL indicate increased risk for diabetes (prediabetes). Fasting plasma glucose results greater than or equal to 126 mg/dL meet the criteria for diagnosis of diabetes. In the absence of unequivocal hyperglycemia, results should be confirmed by repeat testing. In a patient with classic symptoms of hyperglycemia or hyperglycemic crisis, random plasma glucose results greater than or equal to 200 mg/dL meet the criteria for diagnosis of diabetes. Reference: Standards of Medical Care in Diabetes 2016, [place] [employer]. Diabetes Care. 2016.39(Suppl 1). Performed By: #### CMP, LIPB, HBA1C #### [facility] [address] [address] Potassium molar conc 4.8 3.7-5.1 mmol/L Normal 12-26-2017 [facility] ([id number]) Comment: Performed By: #### CMP, LIPB, HBA1C #### [facility] [place] [address] Protein mass conc 8.0 6.3-8.0 g/dL Normal 12-26-2017 [facility] ([id number]) Comment: Performed By: #### CMP, LIPB, HBA1C #### [facility] [place] [address] Sodium molar conc 136 136-144 mmol/L Normal 12-26-2017 [facility] ([id number]) Comment: Performed By: #### CMP, LIPB, HBA1C #### [facility] [address] [address] Urea nitrogen mass conc 9 7-21 mg/dL Normal 12-26-2017 [facility] ([id number]) Comment: Performed By: #### CMP, LIPB, HBA1C #### [place] [address] Vital Signs Vital Sign Description Value / Unit Date Location The following section is limited to 5 entries per type and includes entries from the following time range: 20170320 - 20170320. BMI (Body Mass Index) 32.76 kg/m2 03-20-2017 - 03-20-2017 [facility] ([id number]) Body Temperature 98.1 [degF] 03-20-2017 - 03-20-2017 [facility] ([id number]) Height 170.18 cm 03-20-2017 - 03-20-2017 [facility] ([id number]) Pulse (Heart Rate) 81 /min 03-20-2017 - 03-20-2017 [facility] ([id number]) Weight 94.89 kg 03-20-2017 - 03-20-2017 [facility] ([id number]) Encounters Date Type Reason Provider Location 12-11-2018 - Patient encounter [facility] 12-12-2018 procedure [facility] ([id number]) 11-19-2018 - Patient encounter [facility] 11-20-2018 procedure [facility] ([id number]) 10-04-2018 - Patient encounter SUE [facility] 10-07-2018 procedure BENJAMIN (CODE ENFORCEMENT INSPECTOR) ALAN [facility] ([id number]) 09-30-2018 - Patient encounter BENJAMIN (CODE ENFORCEMENT INSPECTOR) [facility] 09-30-2018 procedure [facility] ([id number]) 04-02-2018 - Patient encounter BENJAMIN (CODE ENFORCEMENT INSPECTOR) [facility] 04-03-2018 procedure SUE Mary [facility] ([id number]) 04-01-2018 - Patient encounter SUE Mary [facility] 04-01-2018 procedure [facility] ([id number]) 03-01-2018 - Patient encounter [facility] 03-04-2018 procedure [facility] ([id number]) 12-31-2017 - Patient encounter SUE Mary [facility] 01-01-2018 procedure SUE Mary [facility] ([id number]) 12-26-2017 Patient encounter SUE Mary [facility] procedure [place] ([id number]) Procedures Procedure Name Date Provider Location Gynecologic examination 03-20-2017 [facility] ([id number]) Screening mammography 03-20-2017 [facility] ([id number]) Plan of Treatment Plan Description Date Location Appointment Appointment 03-20-2017 - [facility] 03-20-2017 [facility] ([id number]) Mammogram-Bilateral, Mammogram-Bilateral, 03-20-2017 - [facility] Screening, Bilateral Screening, Bilateral 03-20-2017 [facility] ([id number]) The following information is from the original human readable content Type Date Detail Appointment 02:10 PM Rica Dill NP, [address], [address], [place], [address], Pending order Mammogram-Bilateral, Screening, Bilateral Type Date Detail Pending order Mammogram-Bilateral, Screening, Bilateral Summary Purpose DATE CREATED AUTHOR AUTHOR'S ORGANIZATION 12/13/2018 [facility] Family History No Family History Records Found Advance Directives No Advanced Directives Records Found Additional Source Comments FOR RECORDS PERTAINING TO PATIENTS WHO ARE OR HAVE BEEN ENROLLED IN A CHEMICAL DEPENDENCY/SUBSTANCE ABUSE PROGRAM, SOME INFORMATION MAY BE OMITTED. This clinical summary was aggregated from multiple sources. Caution should be exercised in using it in the provision of clinical care. This summary normalizes information from multiple sources, and as a consequence, information in this document may materially changethe coding, format and clinical context of patient data. In addition, data may be omittedin some cases. CLINICAL DECISIONS SHOULD BE BASED ON THE PRIMARY CLINICAL RECORDS. [facility] provides no warranty or guarantee of the accuracy or completeness of information in this document. UNRECOGNIZED CONTENT PROVIDED BELOW FOR UNRECOGNIZED SECTION INFORMATION SOURCE DATE CREATED AUTHOR AUTHOR'S ORGANIZATION 12/13/2018 [facility]
== END | disposition home or self-care (01) ==
LOC: OPBI 12-30 14:06
PROVIDERS: Family Provider Family Medicine; PCP Family Medicine; Referring Provider Nurse Practitioner Women's Health; Visit Provider Nurse Practitioner Women's Health
DX: Z12.31 Encounter for screening mammogram for malignant neoplasm of breast (principal)
CPT/HCPCS: 77063; 77067

== ENCOUNTER → 2019-03-05 | Outpatient (CLI) | payer MEDICAID, SELFPAY ==
[2019-03-05 13:25] VITALS: BMI 32.1
== END | disposition home or self-care (01) ==
LOC: LABSPEC 17:00
PROVIDERS: Family Provider Family Medicine; PCP Family Medicine; Referring Provider Nurse Practitioner Women's Health; Visit Provider Nurse Practitioner Women's Health
DX: N89.8 Other specified noninflammatory disorders of vagina (principal)
CPT/HCPCS: 87070; 87205

== ENCOUNTER → 2019-07-30 15:52 | Outpatient (CLI) | payer MEDICAID, SELFPAY ==
[2019-03-05 13:25] VITALS: BMI 32.1
--- NOTE | 2019-07-30 16:00 | BI_ITS ---
MAMMOGRAPHY - BILATERAL SCREENING REASON FOR EXAM: Female, 49 years old. Routine annual screening examination. PERTINENT HISTORY: Non-contributory. TECHNIQUE: Digital bilateral breast дмитрий (3D mammographic acquisition) in the CC and MLO projections. 2-D mediolateral oblique (MLO) and craniocaudad (CC) views of both breasts were obtained. CAD: Full Field Digital Mammography with Computer Added Detection was performed. COMPARISON: Comparison is made with prior study dated July 03, 2018 and April 03, 2017. FINDINGS: Breast Composition: The breasts are heterogeneously dense, which may obscure small masses. There are no dominant masses or suspicious calcifications. Stable benign-appearing bilateral axillary lymph nodes. No other significant abnormalities are identified. There has been no significant change since the prior study. BI/SCREEN MAMM (CAD) W/ДМИТРИЙ BILAT IMPRESSION: Stable bilateral screening mammogram. Yearly follow-up mammogram recommended. (A) ASSESSMENT CATEGORY: BIRADS Category 2: Benign. A letter regarding these results will be sent to the patient by the facility within 30 days. Approximately 10% of breast cancers are not detected by mammography. A normal mammogram should not delay biopsy of a clinically suspicious abnormality. [id number] Electronically Signed: Prashanth Yancey, at 8:55 EST , Service support ,
== END ==
PROVIDERS: Family Provider Family Medicine; PCP Family Medicine; Referring Provider Nurse Practitioner Women's Health; Visit Provider Family Medicine
DX: Z12.31 Encounter for screening mammogram for malignant neoplasm of breast (principal)
CPT/HCPCS: 77063; 77067

== ENCOUNTER → 2021-03-10 16:40 | Outpatient (CLI) | payer MEDICAID, SELFPAY ==
[2019-03-05 13:25] VITALS: BMI 32.1
--- NOTE | 2021-03-10 16:41 | BI_ITS ---
MAMMOGRAPHY - BILATERAL SCREENING REASON FOR EXAM: Female, 50 years old. Routine annual screening examination. PERTINENT HISTORY: Non-contributory. TECHNIQUE: Digital bilateral breast дмитрий (3D mammographic acquisition) in the CC and MLO projections. 2-D mediolateral oblique (MLO) and craniocaudad (CC) views of both breasts were obtained. CAD: Full Field Digital Mammography with Computer Added Detection was performed. COMPARISON: Comparison is made with prior study dated 07/30/2019 and 12/31/2017. FINDINGS: Breast Composition: The breasts are heterogeneously dense, which may obscure small masses. There are no dominant masses or suspicious calcifications. Stable benign-appearing bilateral axillary. No other significant abnormalities are identified. There has been no significant change since the prior study. BI/SCRN MAMM (CAD)W/ДМИТРИЙ BILAT IMPRESSION: Stable bilateral screening mammogram. Yearly follow-up mammogram recommended. (A) ASSESSMENT CATEGORY: BIRADS Category 2: Benign. A letter regarding these results will be sent to the patient by the facility within 30 days. Approximately 10% of breast cancers are not detected by mammography. A normal mammogram should not delay biopsy of a clinically suspicious abnormality. [id number] Electronically Signed: Prashanth Yancey MD at 8:17 EDT , Service support ,
== END ==
PROVIDERS: PCP Family Medicine; Referring Provider Nurse Practitioner Family; Visit Provider Nurse Practitioner Family
DX: Z12.31 Encounter for screening mammogram for malignant neoplasm of breast (principal)
CPT/HCPCS: 77063; 77067

== ENCOUNTER 2022-04-09 00:40 | Emergency (ER) | payer MEDICAID, SELFPAY ==
[2022-04-09 00:42] VITALS: BP 165/84; PULSE 84; RESP 16; TEMP 35.9; O2SAT 97; BMI 31.6
[2022-04-09 00:45] VITALS: BP 165/84; PULSE 84; RESP 16; TEMP 35.9; O2SAT 97
--- NOTE | 2022-04-09 00:59 | EDS_ITS ---
HPI History of Present Illness Chief Complaint: Lower Extremity Injury Informant: patient Narrative Narrative: Patient has been having left knee pain for about a month or so. She just made the assumption was arthritis. She has been taking occasional Naprosyn and icing it. Tonight she felt a pop in the knee. It was mostly in the back. But now the knee feels stiffer and is harder to move without discomfort. She has never had fevers or chills. There is no swelling. No acute injury or fall. No calf pain or swelling. No history of DVT or PE. No distal numbness or tingling. Motion and weightbearing makes it worse and rest makes it better. [facility] Medical History (Updated 04/09/22 @ 01:[address] Juni Manzano MD) Abnormal Pap smear of cervix Diabetes Hypertension Home Medications lisinopril 5 mg tablet 5 mg PO DAILY 07/24/14 [History Last Taken Unknown] metformin 1,000 mg tablet 1,000 mg PO DAILY 06/18/18 [History Last Taken Unknown] metronidazole 500 mg tablet (Flagyl) 500 mg PO BID #14 tabs 03/05/19 [Rx Last Taken Unknown] fluconazole 150 mg tablet 150 mg PO .COMPLEX #2 tabs 03/10/19 [Rx Last Taken Unknown] hydrocodone-acetaminophen 5-325mg 5mg-325mg 1 tab PO Q6H PRN pain 3 days #10 tabs 04/09/22 [Rx Last Taken Unknown] Allergy/AdvReac Type Severity Reaction Status Date / Time No Known Allergies Allergy Verified 03/05/19 13:11 Family History Mother Diabetes Sister Diabetes Surgical History H/O tubal ligation H/O: hysterectomy Hx of cholecystectomy Social History adopted: No household members: children housing: condominium number of children: 1 current occupational status: employed current occupation: [employer] pets and animals: Yes history of recent travel: No Smoking Status: Current every day smoker tobacco type: cigarettes second hand exposure: Yes alcohol intake: current alcohol intake frequency: holidays/special occasions only details: social substance use type: does not use caffeine: Yes what type of physical activity do you participate in: none seatbelt use: always do you feel safe at home: Yes additional social history: single, dght lives with her ROS ROS ED Constitutional Constitutional ED: Denies fever(s) or subjective Cardiovascular Cardiovascular: Denies chest pain or palpitations Respiratory/Chest Respiratory/Chest: Denies dyspnea Gastrointestinal Gastrointestinal: Denies nausea or vomiting Musculoskeletal Musculoskeletal: Reports arthralgias; Denies back pain Integumentary Denies abscess, Abrasions or rash Neurologic Neurologic: Denies paresthesias or weakness Hematologic/Lymphatic Hematologic/Lymphatic: Denies easy bleeding, easy bruising or lymphadenopathy Allergic/Immunologic Allergic/Immunologic ED: Denies urticaria EXAM Physical Exam Const Vital Signs: 04/09/22 00:42 04/09/22 00:45 Temperature 96.7 F L 96.7 F L Temperature Source Temporal Temporal Pulse Rate 84 84 Respiratory Rate 16 16 Blood Pressure 165/84 H 165/84 H Blood Pressure Mean 111 111 Pulse Ox 97 97 Oxygen Delivery Method Room Air Room Air Positive well nourished and well developed General Appearance ED: well developed HEENT atraumatic Resp normal respiratory effort Back/Spine Lumbar Spine / Lower Back: Negative for lumbar spinal tenderness Extremity normal to inspection Extremity Narrative: There is no visible or palpable effusion. There is no asymmetry. No erythema. I do not feel posterior knee fullness consistent with a Velasquez's cyst. There is no notable joint line tenderness. Achilles is intact. No calf tenderness or cords. extensor mechanism is intact. Neuro Sensorium / Orientation: alert Sensory Exam: No sensory level loss detected Motor Exam: strength 5/5 throughout Psych mental status grossly normal Skin no wounds MDM MDM MDM Narrative Medical decision making narrative: 4 view x-ray of the left knee looked at by me and read by radiology shows no sign of acute process. There are some subtle indications of some mild arthritis. But this is not new. We discussed options with the patient. I will write for a few pain pills. Her online prescribing report is 0 prescriptions. She will try a compressive knee brace. I explained that this could be a meniscal injury but those will not show up on x-rays. It is reasonable that she follows up with orthopedics if she is not resolving. If she develops redness fever swelling or other symptoms she should return. At this time, there is no indication whatsoever of infection Radiography Diagnostic Testing: Clinical Impression(s) from Imaging Studies Knee X-Ray 04/09/22 01:15 IMPRESSION: No evidence of acute injury. Electronically Signed: Saturnino Becerra MD at 1:35 EDT , Discharge Plan Triage Chief Complaint: Lower Extremity Injury ED Provider: Juni Manzano Dx/Rx/DC Orders Clinical Impression: Knee pain, left Instructions: ED Knee Pain of Uncertain Cause, ED Knee Sprain Prescriptions: New hydrocodone-acetaminophen 5-325 mg tablet 1 tab PO Q6H PRN (Reason: pain) 3 Days Qty: 10 0RF No Action metformin 1,000 mg tablet 1,000 mg PO DAILY lisinopril 5 MG tablet 5 mg PO DAILY metronidazole [Flagyl] 500 mg tablet 500 mg PO BID Qty: 14 0RF fluconazole 150 mg tablet 150 mg PO .COMPLEX Qty: 2 0RF Rx Instructions: 150 mg PO take one po now and repeat in 3 days Primary Care Provider: Saturnino Rivas Referrals: Saturnino Rivas MD [Primary Care Provider] - Husam Michelle DO [Med Staff - Active Staff] - 1 Week if not improving Disposition Disposition: Home, Self Care
--- NOTE | 2022-04-09 01:15 | RAD_ITS ---
INDICATION: Pain, felt pop tonight EXAMINATION/TECHNIQUE: X-RAY - LEFT XR Knee Complete 4 Views or More: AP, lateral, tunnel and sunrise views COMPARISON: None. FINDINGS: SOFT TISSUES: No significant soft tissue swelling or significant joint effusion. No radiopaque foreign body detected. BONES/JOINTS: No acute fracture or subluxation. Normal alignment. Preservation of the joint space(s). Superior patellar enthesophyte noted. RAD/Knee 4 or More Views IMPRESSION: No evidence of acute injury. Electronically Signed: Saturnino Becerra MD at 1:35 EDT ,
[2022-04-09 02:07] VITALS: RESP 16
== END 2022-04-09 02:08 | disposition home or self-care (01) ==
PROVIDERS: Emergency Provider Emergency Medicine; PCP Family Medicine; Visit Provider Emergency Medicine
DX: M25.562 Pain in left knee (principal); E11.9 Type 2 diabetes mellitus without complications; I10 Essential (primary) hypertension; Z79.899 Other long term (current) drug therapy; Z79.84 Long term (current) use of oral hypoglycemic drugs
CPT/HCPCS: 73564; 99282

== ENCOUNTER → 2023-10-15 | Outpatient (CLI) | payer OTHER, SELFPAY ==
--- NOTE | 2023-10-15 11:08 | RAD_ITS ---
STUDY: X-RAY - LEFT HAND REASON FOR EXAM: Female, 53 years old. pain TECHNIQUE: 3 view(s) of the hand. COMPARISON: None. FINDINGS: Normal radiocarpal articulation. Normal distal radioulnar joint. Normal visualized carpal bones. Normal carpal articulations Normal carpometacarpal articulation of the thumb. Normal second through fifth carpometacarpal joints. Normal metacarpi. Normal metacarpophalangeal joint of the thumb. Normal interphalangeal joint of the thumb. Normal proximal and distal phalanges of the thumb. Normal metacarpophalangeal joints of the second through fifth fingers. Normal proximal and distal interphalangeal joints of the second through fifth fingers. Mild cortical deformity and impaction of the base of the distal phalanx of the fifth finger possibly posttraumatic uncertain chronicity. Clinical correlation recommended. The soft tissue structures are unremarkable. RAD/Hand Min 3 Views IMPRESSION: Question fracture of the base of the distal phalanx of the fifth finger of uncertain chronicity. Clinical correlation is recommended Electronically Signed: Sami Olmstead MD at 17:43 EST Reading Location ID and State: 5 [facility] Tel , Service support ,
--- NOTE | 2023-10-15 11:08 | RAD_ITS ---
STUDY: X-RAY - LEFT WRIST REASON FOR EXAM: Female, 53 years old. pain TECHNIQUE: 3 view(s) of the wrist were obtained. COMPARISON: None. FINDINGS: Normal visualized distal radius and ulna. Normal radiocarpal articulation. Normal distal radioulnar articulation. Normal carpal bones. Normal carpal articulations. There is degenerative arthrosis of the carpometacarpal articulation of the thumb. Normal second through fifth carpometacarpal articulations. Normal visualized metacarpal bones. The soft tissue structures are unremarkable. There is no demonstrated acute fracture. RAD/Wrist min 3 Views IMPRESSION: No definite acute or significant abnormality seen. Electronically Signed: Soham Funes MD at 17:31 EST ,
== END | disposition home or self-care (01) ==
PROVIDERS: PCP Family Medicine; Referring Provider Nurse Practitioner Family; Visit Provider Nurse Practitioner Family
DX: M79.642 Pain in left hand (principal)
CPT/HCPCS: 73110; 73130

== ENCOUNTER → 2024-08-16 | Outpatient (CLI) | payer MEDICAID, SELFPAY ==
--- NOTE | 2024-08-16 07:16 | MRI_ITS ---
EXAM: MR RIGHT LOWER EXTREMITY WITHOUT INTRAVENOUS CONTRAST, KNEE CLINICAL INDICATION: pain TECHNIQUE: Multiplanar and multisequence MR images of the right knee without intravenous contrast. COMPARISON: Apr 08, 2022 FINDINGS: BONES/JOINTS: Small amount of suprapatellar joint fluid with synovitis. No other meniscal tear. EXTENSOR MECHANISM: Unremarkable. MEDIAL MENISCUS: Unremarkable. LATERAL MENISCUS: Attenuated appearance of the anterior horn of the lateral meniscus with increased signal raising concern for a meniscal tear in this location. MEDIAL CAPSULE/SUPPORTING STRUCTURES: Unremarkable. Intact. LATERAL CAPSULE/SUPPORTING STRUCTURES: Unremarkable. Lateral collateral ligamentous complex, inclusive of the popliteal tendon, are intact. ANTERIOR CRUCIATE LIGAMENT: Unremarkable. Intact. POSTERIOR CRUCIATE LIGAMENT: Unremarkable. Intact. MUSCLES: Unremarkable. CARTILAGE: Focal chondral irregularity with mild thinning at the lateral femoral condyle. FLUID: Very small Velasquez''s cyst. No joint effusion. MRI/Lower Ext Joint Only (Routine) IMPRESSION: Attenuated appearance of the anterior horn of the lateral meniscus with increased signal raising concern for a meniscal tear in this location. At least a small amount of suprapatellar joint fluid with mild synovitis. Electronically Signed: Pedro Ponce MD at 5:18 EST ,
== END | disposition home or self-care (01) ==
LOC: MRI 07:08
PROVIDERS: PCP Family Medicine; Referring Provider Orthopaedic Surgery; Visit Provider Orthopaedic Surgery
DX: M25.561 Pain in right knee (principal); G89.29 Other chronic pain
CPT/HCPCS: 73721

== ENCOUNTER 2024-11-27 15:00 | Outpatient (RCR) | payer MEDICAID, SELFPAY ==
--- NOTE | 2024-09-17 12:18 | HP.PTEVAL_ITS ---
Patient's Visit Information Visit Information Visit Information: JOSUÉ WHITTAKER is a 54 year old F referred to Physical Therapy by Dr. Tesfaye Daily DO with a diagnosis of R knee pain, OA. Date of Evaluation: 09/16/24 Physical Therapist: Chi Dominguez DPT Visit Plan Frequency: 2x /Week Duration: 6 Weeks Plan: In aquatic settin) knee ROM, HS stretching 2) quad, glute med, core strengthening. 3) progress functional strengthening as tolerated. Subjective Subjective: Pt. is here today for her R knee OA. Pt. reports having increased pain for ~5-6months. No mech of injury. She did have an xray and MRI, showing some arthritic issues. pt. reports R knee is more painful than the L side. Pt. reports it feel like it is bone on bone. Pt. did have a steroid injection with was helpful for ~1-2 weeks. Pt. is to have gel injections next week. Increases pain: walking, squatting, stairs. Decreases pain: Injections, medications. Sleeping: no major issues. She does have some sciatic nerve like pain, patient reports. 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 Pt. is hopeful to reduce symptoms in order to complete job and recreational activities with improved tolerance. Pain R knee: Pain Intensity (Out of 10): 2 Pain Intensity Range: 1 and 9 Objective Objective: POSTURE: Pt. has increased wt. shift to L LE in stance. Pt. lacks TKE on RLE in stance as well. PALPATION: Pt. has tenderness along lateral aspect of L knee. Pt. reports no N/T. Pt. NEURO: Pt. has normal sensation and DTR of BLEs. ROM: 0-8-110deg. PROM 0-0-118deg. Pt. has pain at end ranges limiting end range of motion. MMT RLE: hip: flexion 11.6#, abd 18.9#, knee ext 26,5#, flex 23.2# LLE: hip: flexion 25.3#, abd 19.8#; knee: ext 35.6#, flex 23.5# GAIT: Pt. has marked antalgic pattern during R stance phase of gait with R lateral trunk lean. Pt. has increased valgus positioning Pt. reports increased R knee pain during stance phase. STAIRS: Pt. completes with step to pattern. Pt. reports increased R knee pain during attempts with loading. Balance/Special Test Scores Lower Extremity Functional Score: 40 Goals Goal 1:: LTG: Pt. to be I with HEP. Goal Time Frame: 4-6 Weeks Goal 2:: LTG: Pt. to have full knee ROM without increase in symptoms. Goal Time Frame: 4-6 Weeks Goal 3:: LTG: Pt. to have increased BLE strength by 10# throughout. Goal Time Frame: 4-6 Weeks Goal 4:: LTG: Pt. to negotiate steps with reciprocal pattern without increase in R knee pain with use of 1 HR. Goal 5:: LTG: Pt. to ambulate with normal pattern without increase in R knee pain. Goal Time Frame: 4-6 Weeks Rehabilitation Potential Physical Therapy Diagnosis: Pt has signs and symptoms consistent with R knee pain/OA. Pt. has marked hypomobility, weakness and difficulty with with WBing functional mobility. Pt. would benefit from PT to address the above limitations progressing back to all work and recreational activities without limitations. Rehabilitation Potential: Good Anticipated Interventions Patient/Client Instruction: Educate patient on: Condition, Plan of Care, Risk Factors and Benefits of Fitness Program For the Purpose of:: To improve decision making, To facilitate caregiver knowledge, To improve self management, To prevent re-injury and To improve ability to perform tasks related to life management Therapeutic Exercise to Include: Strength training, Power training, Endurance training, Flexibilty training, Gait and locomotor training, In an aquatic setting, Passive ROM and Active ROM For the Purpose of:: To decrease pain, To increase ROM, To improve nutrient delivery to tissue, To increase oxygenation perfusion, To improve muscle performance and motor function, To improve ability to perform ADL's, To increase tolerance to activity/condition/position and To improve performance and independence with ADL's Text: Thank you for the opportunity to evaluate your patient. For Medicare and Medicare HMO plans, please review the plan of care and approve it. It will need to be FAXED BACK to us at [phone] for Medicare purposes. For Medicare only, by signing this I certify the plan of care. Please let me know if there are questions or concerns regarding this plan of care. Physician Signature: Date:
--- NOTE | 2024-11-18 14:02 | HP.PTRE(2) ---
Re-Evaluation Intro: Dr. Tesfaye Daily, DO, It has been my pleasure to treat JOSUÉ WHITTAKER over the last visits for . Please see the progress note below for an update on the physical therapy plan of care! Anticipated Interventions Re-Evaluation Ending Re-evaluation ending: Please do not hesitate to contact me at [phone] by phone or if you have questions or concerns regarding this new plan of care! Sincerely, MEY NievesT
== END 2024-11-27 19:00 | disposition home or self-care (01) ==
LOC: PT 15:00
PROVIDERS: PCP Family Medicine; Referring Provider Orthopaedic Surgery; Visit Provider Orthopaedic Surgery
DX: M17.11 Unilateral primary osteoarthritis, right knee (principal)
CPT/HCPCS: 97110; 97113; 97161; 97530